=== PATIENT | female | born 1950 | race Caucasian/White ===

== ENCOUNTER 2020-02-24 07:26 | Day surgery (SDC) | payer OTHER ==
--- NOTE | 2020-02-19 09:29 | RAD REPORT ---
EXAM DESCRIPTION: Zack Rushing (2 Views)02/19/2020 9:20 am CLINICAL HISTORY: Preop. Hypertension COMPARISON: 2012 FINDINGS: The lungs appear clear of acute infiltrate. The heart is normal size IMPRESSION: No acute abnormalities displayed
[2020-02-19 09:52] LABS: Basophils % 0.6 % (0-1.3); Lymphocytes % 19.3 % (15.3-44.8); MPV 9.8 fL (7.6-11.3); RBC Red Blood Cell Count 3.85 M/uL (3.86-4.86)
[2020-02-19 10:12] LABS: Potassium 4.8 mmol/L (3.5-5.1)
[2020-02-24] MEDS ORDERED: Ringers Lactate 1,000 ML IV ONE (07:59)
[2020-02-24] MEDS ORDERED: CEFAZOLIN/SWI 1gm 1 GM/10 ML SYR ONE (07:59)
--- OUTSIDE RECORDS SUMMARY | 2020-02-24 08:05 | XMS REPORT | Continuity of Care Document ---
:1950 Author Organization [facility] Information [place] Care Team Providers Name Role Phone [facility] Information [place] Unavailable Un available Problems Problem Status Onset Classification Date Comments Sourc e Date Reported MOBID OBESITY Active 013 [facility] PREOP CARDIOVSCLR EXAM Active Diagnosis 11/05/2012 [facility] Morbid obesity Active Diagnosis 11/05/2012 [facility] Hypothyroidism Active Problem 11/05/2012 [facility] Hypertension Active Diagnosis 11/05/2012 [facility] Hyperlipidemia Active Diagnosis 11/05/2012 [facility] Acid reflux Active Problem 11/01/2012 [facility] Anal carcinoma Active Problem 11/01/2012 [facility] Chemotherapy Resolved Problem 11/01/2012 [facility] Diabetes mellitus Active Problem 11/01/2012 [facility] Hypercholesterolemia Active Problem 11/01/2012 [facility] Hypertension Active Problem 11/01/2012 [facility] Hypothyroidism Active Problem 11/01/2012 [facility] Liver carcinoma Resolved Problem 11/01/2012 [facility] Morbid obesity Active Problem 11/01/2012 [facility] Radiation Resolved Problem 11/01/2012 [facility] Sleep apnea Active Problem 11/01/2012 [facility] MORBID OBESITY Active [facility] Medications Medication Details Route Status Patient Ordering Order Source Instructions Provider Date Lortab 500 15 ml, PO, Q4H, PO [facility] Buck 10/30[facility] mg-7.5 mg/15 PRN, 300 mL, 2012 [facility] mL oral for pain, [facility] elixir Substitution Allowed, Maintenance, ELIX Lovenox 40 40 mg, SUB-Q, SUB-Q Active Buck 10/30[facility] mg/0.4 mL Q12H, 20 syr, 2012 [facility] subcutaneous Substitution [facility] solution Allowed, SOLN Metoprolol 50 mg, 1 tab, PO Active Buck 10/30/ Tartrate 50 PO, BID, 60 2012 [facility] mg oral tab, [facility] tablet Substitution Allowed Lasix 40 mg, 4 mL, IV No Buck 10/30[facility] Route: IV, Drug Longer 2012 [facility] form: INJ, [facility] ONCE, Start date: 10/30/12 10:32:00, Stop date: 10/30/12 10:32:00 Sodium 500 mL, Rate: IV No Buck 10/29/ MH Chloride 0.9% bolus x1, Longer 2012 [facility] IV 500 mL Route: IV, [facility] Dosing Weight 173.182 kg, Total Volume: 500, Start date: 10/29/12 12:49:00, Duration: 1 doses or times, Stop date: 10/29/12 14:48:00 Lopressor 5 mg, 5 mL, IV No Bukc 10/29/ MH Route: IV, Drug Longer 2012 [facility] form: INJ, Q6H, [facility] Start date: 10/29/12 12:49:00, Duration: 30 day, Stop date: 11/28/12 12:00:00 Sodium IV, 1000 ml/hr, IV No Buck 10/29/ MH Chloride 0.9% ONCE, [facility]: [facility] 7:42:00, 1,000 ml Sodium IV, 1000 ml/hr, IV No Buck 10/29/ MH Chloride 0.9% ONCE, Start Longer 2012 [facility] IV date: 10/29/12 [facility] 7:09:00, 1,000 ml Sodium IV, 1000 ml/hr, IV No Buck 10/28/ MH Chloride 0.9% ONCE, Start Longer 2012 [facility] IV date: 10/28/12 [facility] 13:30:00, 1,000 ml Lovenox 40 mg, 0.4 mL, SUB-Q No Buck 10/28/ Route: SUB-Q, Longer 2012 [facility] Drug form: INJ, [facility] [id number], Start date: 10/28/12 12:00:00, Duration: 30 day, Stop date: 11/27/12 0:00:00 acetaminophen 15 mL, Route: PO No Buck 10/28/ MH -hydrocodone PO, Drug Form: Longer 2012 [facility] SOLN, Q4H, PRN [facility] Pain, Start date: 10/28/12 11:14:00, Duration: 30 day, Stop date: 11/27/12 11:13:00 Tylenol 650 mg, 20.3 PO No Buck 10/28/ MH mL, Route: PO, Longer 2012 [facility] Drug form: LIQ, [facility] Q4H, PRN Pain Score 1-3, Start date: 10/28/12 11:14:00, Duration: 30 day, Stop date: 11/27/12 11:13:00 Lactated IV, 1000 ml/hr, IV No Primomo 10/28/ Ringers ONCE, Start Longer 2012 [facility] Injection IV date: 10/28/12 [facility] 7:09:00, 1,000 ml heparin 5,000 unit, 1 SUB-Q No Buck 10/28/ mL, Route: Longer 2012 [facility] SUB-Q, Drug [facility] form: INJ, ONCE, Start date: 10/28/12 0:00:00, Stop date: 10/28/12 0:00:00 ketorolac 30 30 mg, 1 mL, IV No Buck 10/28/ mg/mL Route: IV, Drug Longer 2012 [facility] injectable form: INJ, Q6H, [facility] solution Start date: 10/27/12 19:00:00, Duration: 4 day, Stop date: 10/31/12 13:00:00 Vasotec 1.25 mg, 1 mL, IVP No Buck 10/27/ Route: IVP, Longer 2012 [facility] Drug form: INJ, [facility] Q6H, PRN Hypertension, Start date: 10/27/12 14:24:00, Duration: 30 day, Stop date: 11/26/12 14:23:00 Phenergan 25 mg, 1 mL, IM No Buck 10/27/ Route: IM, Drug Longer 2012 [facility] form: INJ, Q4H, [facility] PRN Nausea, Start date: 10/27/12 14:24:00, Duration: 30 day, Stop date: 11/26/12 14:23:00 Lactated 1,000 mL, Rate: IV No Buck 10/27/ Ringers 80 ml/hr, Longer 2012 [facility] Injection IV Infuse over: [facility] 1,000 mL 12.5 hr, Route: IV, Dosing Weight 173.182 kg, Total Volume: 1,000, Start date: 10/27/12 14:23:00, Stop date: 11/26/12 14:22:00 insulin 5 unit, 0.05 SUB-Q No Buck 10/27/ regular 100 mL, Route: Longer 2012 [facility] units/mL SUB-Q, Drug Active [facility] human form: SOLN, recombinant Q6H, PRN Blood Glucose Results, Start date: 10/27/12 14:20:00, Duration: 30 day, Stop date: 11/26/12 14:19:00 Dextrose 50% 25 mL, Route: IVP No Buck 10/27/ MH in Water IV IVP, Start Longer 2012 [facility] date: 10/27/12 [facility] 14:20:00, Duration: 30 day, Stop date: 11/26/12 14:19:00, PRN Blood Glucose Results Dextrose 50% 50 mL, Route: IVP No Buck 10/27/ MH in Water IV IVP, Start Longer 2012 [facility] date: 10/27/12 [facility] 14:19:00, Duration: 30 day, Stop date: 11/26/12 14:18:00, PRN Blood Glucose Results Zofran 4 mg, 2 mL, IVP No Buck 10/27/ Route: IVP, [facility] 2012 [facility] Drug form: INJ, [place] Q8H, PRN Nausea & Vomiting, Start date: 10/27/12 12:36:00, Duration: 30 day, Stop date: 11/26/12 12:35:00 Benadryl 25 mg, 0.5 mL, IVP No Buck Route: IVP, 2012 [facility] Drug form: INJ, [place] Q6H, PRN Itching, Start date: 10/27/12 12:36:00, Duration: 30 day, Stop date: 11/26/12 12:35:00 naloxone 0.2 mg, 0.5 mL, IVP No Buck Route: IVP, Longer 2012 [facility] Drug form: INJ, [place] Q5Min, PRN Narcotic Reversal, Start date: 10/27/12 12:36:00, Duration: 30 day, Stop date: 11/26/12 12:35:00 morphine IV, Start date: IV No Buck Sulfate 30 mg 10/27/12 [facility] 2012 [facility] 12:35:00, Active [facility] Duration: 30, 30 ml, 173.182 ondansetron 4 mg, 2 mL, IVP No Antonio Route: IVP, 2012 [facility] Drug form: INJ, [place] ONCE, Dosing Weight 173.182, kg, PRN Nausea & Vomiting, Start date: 10/27/12 10:28:00 flumazenil 0.2 mg, 2 mL, IVP No [facility] Route: IVP, 2012 [facility] Drug form: INJ, [place] PRN, Dosing Weight 173.182, kg, PRN Benzodiazepine Reversal, Initial dose, Start date: 10/27/12 10:28:00, Duration: 30 day, Stop date: 11/26/12 10:27:00 naloxone 0.04 mg, 0.1 IVP No [facility] mL, Route: IVP, 2012 [facility] Drug form: INJ, [place] Q2MIN, Dosing Weight 173.182, kg, PRN Narcotic Reversal, Start date: 10/27/12 10:28:00, Duration: 8 doses or times, Stop date: Limited # of times morphine 2 mg, 0.2 mL, IVP No [facility] Sulfate Route: IVP, 2012 [facility] Drug form: INJ, [place] Q5Min, Dosing Weight 173.182, kg, PRN Pain Score 4-6, Start date: 10/27/12 10:28:00, Duration: 5 doses or times, Stop date: Limited # of times meperidine 12.5 mg, 0.25 IVP No [facility] mL, Route: IVP, Longer 2012 [facility] Drug form: INJ, [place] Q30Min, Dosing Weight 173.182, kg, PRN Other -See Comment, For shivering, Start date: 10/27/12 10:28:00, Duration: 2 doses or times, Stop date: Limited # of times Lactated 1,000 mL, Rate: IV No [facility] Ringers 25 ml/hr, Longer 2012 [facility] Injection IV Infuse over: 40 Active [facility] y 1,000 mL hr, Route: IV, Dosing Weight 173.182 kg, Total Volume: 1,000, Start date: 10/27/12 7:11:00, Duration: 30 day, Stop date: 11/26/12 7:10:00 Invanz + 1 gm, Route: IVPB No Buck Sodium IVPB, ONCALL, Longer 2012 [facility] Chloride 0.9% Start date: [facility] IV 100 mL 10/26/12 11:00:00, Duration: 1 doses or times Amaryl 4 mg 4 mg, 1 tab, PO No oral tablet PO, Daily, 30 Longer 2012 [facility] tab, [facility] Substitution Allowed, TAB Zocor 20 mg 20 mg, 1 tab, PO No oral tablet PO, Daily, 30 Longer 2012 [facility] tab, [facility] Substitution Allowed, Maintenance Synthroid 75 75 microgram, 1 PO No mcg (0.075 tab, PO, Daily, Longer 2012 [facility] mg) oral 30 tab, [facility] tablet Substitution Allowed, TAB folic acid Substitution Active Allowed 2012 [facility] Toprol-XL 100 100 mg, 1 tab, PO No mg oral PO, Daily, 30 Longer 2012 [facility] tablet, tab, [facility] extended Substitution release Allowed, ERTAB Benicar 40 mg 40 mg, 1 tab, PO No oral tablet PO, Daily, 30 Long[facility], [facility] Substitution Allowed, TAB Nasonex 2 spray(s) intranasally Active 50 mcg/inh [place] Comp intranasally Heart once a day Care Benicar 1 tab(s) orally Active 40 mg orally [place] Comp once a day [facility] Synthroid 1 tab(s) orally Active 75 mcg (0.075 [place] Comp mg) orally [facility] Toprol XL 1 tab(s) orally Active 100 mg orally [place] Comp once a day Heart Care Zocor 1 tab(s) orally Active 20 mg orally [place] Comp once a day Heart (at bedtime) Care folic acid 1 tab(s) orally Active 1 mg orally [place] Comp once a day [facility] Care Amaryl 1 tab(s) orally Active 4 mg orally [place] Comp once a day Heart Care Allergies, Adverse Reactions, Alerts Substance Category Reaction Severity Reaction Status Date Comments S ource type Reported NKFA drug Allergy Active allergy [facility] Immunizations No Data Provided for This Section Results Order Name Results Value Reference Date Interpretation Comments Janeen rce Range BEDSIDE Gluc POC 138 70 - 99 10/30 HI <sup>1</sup>I GLUCOSE Lif /2012 nterpretive [facility] TESTING Data: [facility] Upper Reportable Limit: 200 mg/dL. CHEMISTRY AGAP 14.4 10.0 - 10/30 Normal MH 20. [facility] CHEMISTRY eGFR 32 10/30 NA <sup>4</sup>R [facility] Comment: The [facility] eGFR is calculated using the CKD-EPI formula. In most young, healthy individuals the eGFR will be >90 mL/min/1.73m2 . The eGFR declines with age. An eGFR of 60-89 may be normal in some populations, particularly the elderly, for whom the CKD-EPI formula has not been extensively validated. Use of the eGFR is not recommended in the following populations:& lt;br/>
I ndividuals with unstable creatinine concentration s, including patients and those with serious co-morbid conditions.<b r/>
Patie nts with extremes in muscle mass or diet.

The data above are obtained from the National Kidney Disease Education Program (NKDEP) which additionally recommends that when the eGFR is used in patients with extremes of body mass index for purposes of drug dosing, the eGFR should be multiplied by the estimated BMI. CHEMISTRY Chloride Lvl 107 95 - 109 10/30 Normal [facility] CHEMISTRY CO2 24 24 - 32 10/30 Normal [facility] CHEMISTRY Calcium Lvl 8.4 8.5 - 10.5 10/30 LOW [facility] CHEMISTRY BUN 36 7 - 22 10/30 HI [facility] CHEMISTRY Glucose Lvl 110 70 - 99 10/30 HI <sup>7</sup>I nterpretive [facility] Data: [facility] reference range values reflect the clinical guidelines
of the [employer]. CHEMISTRY Sodium Lvl 141 135 - 145 10/30 Normal [facility] CHEMISTRY Creatinine 1.7 0.5 - 1.4 10/30 HI [facility] CHEMISTRY Potassium 4.4 3.5 - 5.1 10/30 Normal [facility] HEMATOLOGY RDW 15.1 11.5 - 10/30 HI MH 14.5 [facility] HEMATOLOGY MCH 31.4 27.0 - 10/30 HI MH 31. [facility] HEMATOLOGY Platelet 134 133 - 450 10/30 Normal /2012 [facility] HEMATOLOGY MCHC 34.0 32.0 - 10/30 Normal MH 36.0 [facility] HEMATOLOGY MCV 92.4 81.0 - 10/30 Normal MH 99.0 /2012 [facility] HEMATOLOGY Hct 32.1 36.0 - 10/30 LOW MH 48.0 /2012 [facility] HEMATOLOGY MPV 11.1 7.4 - 10.4 10/30 HI MH /2012 [facility] HEMATOLOGY Hgb 10.9 12.0 - 10/30 LOW MH 16.0 /2012 [facility] HEMATOLOGY WBC 10.9 3.7 - 10.4 10/30 HI /2012 [facility] HEMATOLOGY RBC 3.47 4.20 - 10/30 LOW MH 5.40 /2012 [facility] HEMATOLOGY Neut Vac Slight None Seen 10/30 ABN *ABN* /2012 [facility] (10/30/2012 11:09:00) Ci HEMATOLOGY Monocytes # 0.6 0.0 - 0.8 10/30 Normal MH /2012 [facility] HEMATOLOGY Large Plt Slight None Seen 10/30 ABN *ABN* /2012 [facility] (10/30/2012 11:09:00) Ci HEMATOLOGY Basophils # 0.0 0.0 - 0.2 10/30 Normal /2012 [facility] HEMATOLOGY Eosinophils 0.1 0.0 - 0.5 10/30 Normal MH # /2012 [facility] HEMATOLOGY Lymphocytes 0.4 1.0 - 5.5 10/30 LOW MH # /2012 [facility] HEMATOLOGY Segs-Bands # 9.8 1.5 - 8.1 10/30 HI MH /2012 [facility] HEMATOLOGY Basophils 0.1 0.0 - 1.0 10/30 Normal MH /2012 [facility] HEMATOLOGY Monocytes 5.2 2.0 - 12.0 10/30 Normal /2012 [facility] HEMATOLOGY RBC Morph Normal 10/30 Normal (10/30/2012 11:09:00) /2012 [facility] HEMATOLOGY Segs 90.1 45.0 - 10/30 HI MH 75.0 [facility] HEMATOLOGY Lymphocytes 3.7 20.0 - 10/30 LOW MH 40.0 [facility] HEMATOLOGY Eosinophils 0.9 0.0 - 4.0 10/30 Normal MH /2012 [facility] BEDSIDE Gluc POC 108 70 - 99 10/30 HI <sup>2</sup>I GLUCOSE Lifscn /2012 nterpretive [facility] TESTING Data: [facility] Upper Reportable Limit: 200 mg/dL. CHEMISTRY Phosphorus 3.1 2.5 - 4.5 10/30 Normal /2012 [facility] CHEMISTRY Magnesium 1.1 1.8 - 2.4 10/30 LOW MH [facility] CHEMISTRY A/G Ratio 0.9 0.7 - 1.6 10/30 Normal [facility] CHEMISTRY Globulin 3.2 2.0 - 4.0 10/30 Normal [facility] CHEMISTRY Alk Phos 69 39 - 136 10/30 Normal [facility] CHEMISTRY ALT 26 0 - 65 10/30 Normal [facility] CHEMISTRY AST 16 0 - 37 10/30 Normal [facility] CHEMISTRY Bili Total 0.3 0.2 - 1.3 10/30 Normal [facility] CHEMISTRY eGFR 30 10/30 NA <sup>5</sup>R [facility] Comment: The [facility] eGFR is calculated using the CKD-EPI formula. In most young, healthy individuals the eGFR will be >90 mL/min/1.73m2 . The eGFR declines with age. An eGFR of 60-89 may be normal in some populations, particularly the elderly, for whom the CKD-EPI formula has not been extensively validated. Use of the eGFR is not recommended in the following populations:& lt;br/>
I ndividuals with unstable creatinine concentration s, including patients and those with serious co-morbid conditions.<b r/>
Patie nts with extremes in muscle mass or diet.

The data above are obtained from the National Kidney Disease Education Program (NKDEP) which additionally recommends that when the eGFR is used in patients with extremes of body mass index for purposes of drug dosing, the eGFR should be multiplied by the estimated BMI. CHEMISTRY Glucose Lvl 116 70 - 99 10/30 HI <sup>8</sup>I nterpretive [facility] Data: [facility] reference range values reflect the clinical guidelines
of the [employer]. CHEMISTRY BUN 36 7 - 22 10/30 HI [facility] CHEMISTRY Potassium 4.0 3.5 - 5.1 10/30 Normal [facility] CHEMISTRY Chloride Lvl 108 95 - 109 10/30 Normal [facility] CHEMISTRY Creatinine 1.8 0.5 - 1.4 10/30 HI MH [facility] CHEMISTRY Sodium Lvl 140 135 - 145 10/30 Normal [facility] CHEMISTRY CO2 24 24 - 32 10/30 Normal MH /2012 [facility] CHEMISTRY Albumin Lvl 2.8 3.5 - 5.0 10/30 LOW MH /2012 [facility] CHEMISTRY Calcium Lvl 8.1 8.5 - 10.5 10/30 LOW MH /2012 [facility] CHEMISTRY B/C Ratio 20 6 - 25 10/30 Normal /2012 [facility] CHEMISTRY Total 6.0 6.4 - 8.4 10/30 LOW MH Protein /2012 [facility] CHEMISTRY AGAP 12.0 10.0 - 10/30 Normal MH 20.0 /2012 [facility] HEMATOLOGY MCHC 32.8 32.0 - 10/30 Normal MH 36.0 /2012 [facility] HEMATOLOGY Hct 30.8 36.0 - 10/30 LOW MH 48.0 /2012 [facility] HEMATOLOGY RDW 15.4 11.5 - 10/30 HI MH 14.5 [facility] HEMATOLOGY MCH 29.9 27.0 - 10/30 Normal MH 31.0 [facility] HEMATOLOGY MCV 91.3 81.0 - 10/30 Normal MH 99.0 [facility] HEMATOLOGY Platelet 128 133 - 450 10/30 LOW <sup>14</sup> Result [facility] Comment: City reviewed, spoke to cuong joan 10/30/2012 00:56 gr HEMATOLOGY MPV 11.5 7.4 - 10.4 10/30 HI MH /2012 [facility] HEMATOLOGY RBC 3.37 4.20 - 10/30 LOW MH 5.40 /2012 [facility] HEMATOLOGY WBC 10.0 3.7 - 10.4 10/30 Normal /2012 [facility] HEMATOLOGY Hgb 10.1 12.0 - 10/30 LOW MH 16.0 [facility] HEMATOLOGY Elliptocyte Slight None Seen 10/30 ABN MH *ABN* /2012 [facility] (10/29/2012 23:55:00) Ci ty HEMATOLOGY Large Plt Slight None Seen 10/30 ABN MH *ABN* /2012 [facility] (10/29/2012 23:55:00) Ci ty HEMATOLOGY Tear Cell Slight None Seen 10/30 ABN *ABN* /2012 [facility] (10/29/2012 23:55:00) Ci ty HEMATOLOGY Monocytes 1.0 2.0 - 12.0 10/30 LOW [facility] HEMATOLOGY Eosinophils 1.0 0.0 - 4.0 10/30 Normal MH /2012 [facility] HEMATOLOGY Atypical 0.0 <=0.0 10/30 Normal MH Lymphs /2012 [facility] HEMATOLOGY Lymphocytes 3.0 20.0 - 10/30 LOW MH 40.0 /2012 [facility] HEMATOLOGY Bands 13.0 0.0 - 11.0 10/30 HI MH /2012 [facility] HEMATOLOGY Lymphocytes 0.3 1.0 - 5.5 10/30 LOW MH # /2012 [facility] HEMATOLOGY Monocytes # 0.1 0.0 - 0.8 10/30 Normal MH /2012 [facility] HEMATOLOGY Eosinophils 0.1 0.0 - 0.5 10/30 Normal MH # /2012 [facility] HEMATOLOGY Segs-Bands # 9.5 1.5 - 8.1 10/30 HI MH /2012 [facility] HEMATOLOGY Segs 82.0 45.0 - 10/30 HI MH 75.0 /2012 [facility] BEDSIDE Gluc POC 130 70 - 99 10/30 HI <sup>3</sup>I GLUCOSE Lifscn /2012 nterpretive [facility] TESTING Data: [facility] Upper Reportable Limit: 200 mg/dL. CHEMISTRY eGFR 34 10/29 NA <sup>6</sup>R [facility] Comment: The [facility] eGFR is calculated using the CKD-EPI formula. In most young, healthy individuals the eGFR will be >90 mL/min/1.73m2 . The eGFR declines with age. An eGFR of 60-89 may be normal in some populations, particularly the elderly, for whom the CKD-EPI formula has not been extensively validated. Use of the eGFR is not recommended in the following populations:& lt;br/>
I ndividuals with unstable creatinine concentration s, including patients and those with serious co-morbid conditions.<b r/>
Patie nts with extremes in muscle mass or diet.

The data above are obtained from the National Kidney Disease Education Program (NKDEP) which additionally recommends that when the eGFR is used in patients with extremes of body mass index for purposes of drug dosing, the eGFR should be multiplied by the estimated BMI. CHEMISTRY Creatinine 1.6 0.5 - 1.4 10/29 HI MH Lvl [facility] HEMATOLOGY PTT 21.5 22.9 - 10/29 LOW <sup>17</sup> MH 35.8 /2013 Interpretive [facility] Data: Heparin [facility] Therapeutic Range: 57 - 92 Seconds HEMATOLOGY Platelet 40 133 - 450 10/29 LOW <sup>15</sup> Result [facility] Comment: Barby Selena acevedo agreed to verify. 10/29/2012 18:47 CHEMISTRY U Creatinine 474.5 10/29 NA <sup>12</sup> Interpretive [facility] Data: No [facility] established reference ranges. CHEMISTRY U Sodium 11 10/29 NA <sup>13</sup> Interpretive [facility] Data: No [facility] established reference ranges. CHEMISTRY Total 6.0 6.4 - 8.4 10/29 LOW MH Protein [facility] CHEMISTRY Globulin 2.8 2.0 - 4.0 10/29 Normal [facility] CHEMISTRY A/G Ratio 1.1 0.7 - 1.6 10/29 Normal [facility] CHEMISTRY AST 24 0 - 37 10/29 Normal [facility] CHEMISTRY ALT 33 0 - 65 10/29 Normal [facility] CHEMISTRY Bili Total 0.7 0.2 - 1.3 10/29 Normal [facility] CHEMISTRY Alk Phos 76 39 - 136 10/29 Normal [facility] CHEMISTRY Albumin Lvl 3.2 3.5 - 5.0 10/29 LOW [facility] CHEMISTRY CO2 25 24 - 32 10/29 Normal [facility] CHEMISTRY Sodium Lvl 141 135 - 145 10/29 Normal [facility] CHEMISTRY Potassium 4.5 3.5 - 5.1 10/29 Normal MH Lvl [facility] CHEMISTRY Chloride Lvl 105 95 - 109 10/29 Normal [facility] CHEMISTRY Calcium Lvl 8.5 8.5 - 10.5 10/29 Normal [facility] CHEMISTRY Glucose Lvl 107 70 - 99 10/29 HI <sup>9</sup>I nterpretive [facility] Data: [facility] reference range values reflect the clinical guidelines
of the [employer]. CHEMISTRY BUN 31 7 - 22 10/29 HI [facility] CHEMISTRY B/C Ratio 17 6 - 25 10/29 Normal [facility] CHEMISTRY AGAP 15.5 10.0 - 10/29 Normal MH 20.0 [facility] HEMATOLOGY Large Plt Slight None Seen 10/29 ABN MH *ABN* /2012 [facility] (10/29/2012 05:57:00) Ci ty HEMATOLOGY Basophils # 0.0 0.0 - 0.2 10/29 Normal MH /2012 [facility] HEMATOLOGY RBC Morph Normal 10/29 Normal MH (10/29/2012 05:57:00) /2012 [facility] HEMATOLOGY Eosinophils 0.1 0.0 - 4.0 10/29 Normal MH /2012 [facility] HEMATOLOGY Basophils 0.2 0.0 - 1.0 10/29 Normal MH /2012 [facility] HEMATOLOGY Segs 93.2 45.0 - 10/29 HI MH 75.0 /2012 [facility] HEMATOLOGY Lymphocytes 3.2 20.0 - 10/29 LOW MH 40.0 /2012 [facility] HEMATOLOGY Monocytes 3.3 2.0 - 12.0 10/29 Normal MH /2012 [facility] HEMATOLOGY Eosinophils 0.0 0.0 - 0.5 10/29 Normal MH # /2012 [facility] [facility] HEMATOLOGY Segs-Bands # 11.6 1.5 - 8.1 10/29 HI MH /2012 [facility] HEMATOLOGY Lymphocytes 0.4 1.0 - 5.5 10/29 LOW MH # /2012 [facility] HEMATOLOGY Monocytes # 0.4 0.0 - 0.8 10/29 Normal MH /2012 [facility] HEMATOLOGY WBC 12.4 3.7 - 10.4 10/29 HI MH /2012 [facility] HEMATOLOGY MCV 91.9 81.0 - 10/29 Normal MH 99.0 /2012 [facility] HEMATOLOGY Hct 33.8 36.0 - 10/29 LOW MH 48.0 /2012 [facility] HEMATOLOGY MCH 31.1 27.0 - 10/29 HI MH 31.0 /2012 [facility] HEMATOLOGY Hgb 11.5 12.0 - 10/29 LOW MH 16.0 [facility] HEMATOLOGY RBC 3.68 4.20 - 10/29 LOW MH 5.40 /2012 [facility] HEMATOLOGY MPV 11.3 7.4 - 10.4 10/29 HI MH /2012 [facility] HEMATOLOGY MCHC 33.9 32.0 - 10/29 Normal MH 36.0 [facility] HEMATOLOGY RDW 14.9 11.5 - 10/29 HI MH 14.5 [facility] BEDSIDE Comment1 Notify 10/28 NA GLUCOSE RN/MD /2012 [facility] BEDSIDE Comment1 Notify 10/28 NA GLUCOSE RN/ /2012 [facility] CHEMISTRY B/C Ratio 17 6 - 25 10/28 Normal [facility] CHEMISTRY Globulin 3.2 2.0 - 4.0 10/28 Normal MH [facility] CHEMISTRY A/G Ratio 0.9 0.7 - 1.6 10/28 Normal MH [facility] CHEMISTRY Albumin Lvl 2.9 3.5 - 5.0 10/28 LOW MH [facility] CHEMISTRY Total 6.1 6.4 - 8.4 10/28 LOW MH Protein [facility] CHEMISTRY AST 27 0 - 37 10/28 Normal [facility] CHEMISTRY Bili Total 0.6 0.2 - 1.3 10/28 Normal [facility] CHEMISTRY Alk Phos 72 39 - 136 10/28 Normal [facility] CHEMISTRY ALT 38 0 - 65 10/28 Normal [facility] HEMATOLOGY Plt Morph Normal 10/28 Normal (10/28/2012 04:04:00) [facility] HEMATOLOGY RBC Morph Normal 10/28 Normal (10/28/2012 04:04:00) [facility] HEMATOLOGY Basophils 0.0 0.0 - 1.0 10/28 Normal [facility] HEMATOLOGY Basophils # 0.0 0.0 - 0.2 10/28 Normal [facility] BEDSIDE Comment1 Notify 10/27 NA GLUCOSE RN/MD /2012 [facility] BLOOD BANK AB Scrn Negative 10/27 Normal RESULTS (Tube) (10/27/2012 07:30:00) [facility] BLOOD BANK ABO/Rh A POS 10/27 Unknown RESULTS /2012 [facility] CHEMISTRY Vitamin B1 132 78 - 185 10/13 NA <sup>10</sup> Result [facility] Comment: [place] Performed at:
[facility]<br/ >[address] [place] [address]
koffi Sandip [facility] [address] Mel Hines MD, PhD CHEMISTRY Vitamin D, 11 30 - 100 10/13 ABN <sup>11</sup> 25-OH, Total *ABN* /2012 Interpretive Peri greene (10/13/2012 11:55:00) Data: Ci ty Reference range is based on recommendatio ns in the Endocrine<br/ >Society Clinical Practice Guideline (J Clin Endocrinol Metab
201 1;96:[id number] 0) HEMATOLOGY INR 0.99 0.85 - 10/13 Normal <sup>16</sup> MH 1.17 Interpretive [facility] Data: [facility] RECOMMENDED RANGES FOR PROTIME INR:
2.0-3.0 for most medical and surgical thromboemboli c states.
2.5-3.5 for artificial heart valves and recurrent embolism.<br/ >
INR SHOULD BE USED ONLY FOR PATIENTS ON STABLE ANTICOAGULANT THERAPY. HEMATOLOGY PTT 38.9 22.9 - 10/13 HI <sup>18</sup> MH 35.8 /2012 Interpretive [facility] Data: [facility] Therapeutic Range: 57 - 92 Seconds HEMATOLOGY PT 13.3 12.0 - 10/13 Normal MH 14.7 /2012 [facility] URINALYSIS UA 0.1 - 1.0 10/13 [facility] Urobilinogen /2012 [facility] URINALYSIS UA Mucus Few /LPF None Seen 10/13 [facility] *NA* /2012 [facility] (10/13/2012 11:41:00) Ci ty URINALYSIS Micro? [facility] 10[facility] (10/13/2012 11:41:00) Ci ty URINALYSIS UA Bacteria Occasional /HPF None Seen 10/13 [facility] *NA* /2012 [facility] (10/13/2012 11:41:00) Ci ty URINALYSIS UA WBC 1 0 - 5 10/13 Normal [facility] URINALYSIS UA Nitrite Negative Negative 10/13 Normal (10/13/2012 11:41:00) [facility] URINALYSIS UA Leuk Est Negative Negative 10/13 Normal (10/13/2012 11:41:00) [facility] URINALYSIS UA Sq Epi Few /LPF Few 10/13 [facility] *NA* /2012 [facility] (10/13/2012 11:41:00) Ci ty URINALYSIS UA Blood Negative Negative 10/13 Normal (10/13/2012 11:41:00) [facility] URINALYSIS UA Glucose Negative mg/dL Negative 10/13 [facility] *NA* [facility] (10/13/2012 11:41:00) Ci ty URINALYSIS UA Ketones Negative mg/dL Negative 10/13 [facility] *NA* [facility] (10/13/2012 11:41:00) Ci ty URINALYSIS UA Bili Negative Negative 10/13 [facility] *NA* [facility] (10/13/2012 11:41:00) Ci ty URINALYSIS UA Protein 30 mg/dL Negative 10/13 ABN *ABN* /2012 [facility] (10/13/2012 11:41:00) Ci ty URINALYSIS UA pH 5.5 5.0 - 8.0 10/13 Normal [facility] URINALYSIS UA Turbidity Clear Clear 10/13 Normal (10/13/2012 11:41:00) /2012 [facility] URINALYSIS UA Spec Grav 1.016 <=1.030 10/13 Normal [facility] URINALYSIS UA Color Yellow Yellow 10/13 NA *NA* /2012 [facility] (10/13/2012 11:41:00) Ci ty Pathology Reports No Data Provided for This Section Diagnostic Reports Report Value Date Source Stomach UGI (water OMNIPAQUE UPPER GI SERIES 10/28/2012 10/29/19 13 [facility] soluble contrast) The fluoroscopy time is 0.5 minute. Small volume of Omnipaque gi julia orally passed easily from the distal esophagus into the proximal small bowel via the gastrojejunostomy. No contrast extravasation or obstruction is seen. Chest 2 views EXAMINATION: Chest x-ray 2 views 10/13/2012 [facility] COMPARISON: NONE AVAILABLE COMMENTS: The heart and pulmonary vasc ulature are within normal limits. No focal consolidation or significant pleural fluid collection is appreciated. No suspicious osseous pathology. IMPRESSION: NO ACUTE CARDIOPULMONARY ABNORMALITY. Consultation Notes No Data Provided for This Section Discharge Summaries No Data Provided for This Section History and Physicals No Data Provided for This Section Vital Signs Vital Sign Value Date Comments Source Heart Rate 108 10/30/2012 [facility] [place] Diastolic (mm Hg) 74 10/30/2012 [facility] Respitory Rate 16 10/30/2012 [facility] Systolic (mm Hg) 139 10/30/2012 [facility] Temperature Oral (F) 98.0 F 10/30/2012 [facility] Diastolic (mm Hg) 48 10/30/2012 [facility] Systolic (mm Hg) 110 10/30/2012 [facility] Respitory Rate 16 10/30/2012 [facility] Heart Rate 102 10/30/2012 [facility] [place] Temperature Oral (F) 98.6 F 10/30/2012 [facility] Systolic (mm Hg) 113 10/30/2012 [facility] Diastolic (mm Hg) 72 [facility] Heart Rate 106 10/30/2012 [facility] [place] Respitory Rate 16 10/30/2012 [facility] Barbie ity Temperature Oral (F) 98.1 F 10/30/2012 Tanner callaway [facility] Height 154.94 cm 10/13/2012 [facility] [place] Weight 173.182 10/13/2012 [facility] Cit y Diastolic (mm Hg) 98 09/01/2012 [facility] Systolic (mm Hg) 160 09/01/2012 [facility] Weight 374.2 09/01/2012 [facility] Height 63 09/01/2012 [facility] Encounters Location Location Encounter Encounter Reason Attending ADM DC Stat us Source Details Type Number For Provider Date Date Visit Comprehensi Unknown [id number] 09/01 09/01 [facility] [id number] /[facility] [id number] [facility] Inpatient [id number] [facility] 10/27 10/30 Dis [facility] /2012 ed [facility] Procedures Procedure Code Date Perfomer Comments Source Gastric bypass [id number] [facility] Bariatric operative [id number] [facility] Cholecystectomy [id number] [facility] Hysterectomy [id number] [facility] Liver reconstruction [id number] [id number] <sup>1</sup> Assessment and Plan No Data Provided for This Section Plan of Care No Data Provided for This Section Social History Social History Date Source Social History ElementQualifiersDate Reported 09/01/2012 [facility] Caffeine: yes. frequency: Patient drinks 1 cup of coffee per day September 01, 2012 Recreational drug use: no. September 01, 2012 Tobacco Use: . Smoking Status: former smoker Patient smokes 2 cigarettes per day before quitting in 1982September 01, 2012 Alcohol: socially. Pateint drinks 1 glass of wine per week September 01, 2012 Family History No Data Provided for This Section Advance Directives No Data Provided for This Section Functional Status No Data Provided for This Section
--- OUTSIDE RECORDS SUMMARY | 2020-02-24 08:07 | XMS REPORT | Continuity of Care Document ---
:1950 Author Organization [facility] t Address [address] [place] [address] Care Team Providers Name Role Phone Unavailable Unavailable Unavailable Problems Condition Condition Condition Status Onset Resolution Last Treating Co mments Source Name Details Category Date Date Treatment Clinician Date MOBID Diagnosis Active 2012-10-27 Mem oria OBESITY 5-16 13:28:00 l MOBID 00:00: [place] OBESITY 00 Active 09/18/2012 [facility][note 3] Chemothera Problem Resolve 2012-11-01 Memoria py d 20:14:36 l Main Chemothera py Resolved Problem 11/01/2012 [facility][note 3] Liver Problem Resolve 2012-11-01 Tanner isaias carcinoma d 20:14:36 l Liver Main carcinoma Resolved Problem 11/01/2012 [facility][note 3] Radiation Problem Resolve 2012-11-01 M emoria d 20:14:36 l Main Radiation Resolved Problem 11/01/2012 [facility][note 3] PREOP Diagnosis Active 2012-11-05 Mem oria CARDIOVSCL 04:11:47 l R EXAM PREOP [place] CARDIOVSCL R EXAM Active Diagnosis 11/05/2012 [facility] Morbid Diagnosis Active 2012-11-05 Mem oria obesity 04:11:47 l Morbid Main obesity Active Diagnosis 11/05/2012 [facility] Hypothyroi Problem Active 2012-11-05 M emoria dism 04:11:47 l (acquired) Phu n Hypothyroi dism (acquired) Active Problem 11/05/2012 [facility] Hypertensi Diagnosis Active 2012-11-05 Memoria on 04:11:47 l Main Hypertensi on Active Diagnosis 11/05/2012 [facility] Hyperlipid Diagnosis Active 2012-11-05 Memoria emia 04:11:47 l Main Hyperlipid emia Active Diagnosis 11/05/2012 [facility] Acid Problem Active 2012-11-01 Memor ia reflux 20:14:36 l Acid [place] reflux Active Problem 11/01/2012 [facility][note 3] 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 20:14:36 l Anal Main carcinoma Active Problem 11/01/2012 [facility][note 3] Diabetes Problem Active 2012-11-01 Mem oria mellitus 20:14:36 l Diabetes Phu n mellitus Active Problem 11/01/2012 [facility][note 3] Hyperchole Problem Active 2012-11-01 M emoria sterolemia 20:14:36 l Main Hyperchole sterolemia Active Problem 11/01/2012 [facility][note 3] Hypertensi Problem Active 2012-11-01 M emoria on 20:14:36 l Main Hypertensi on Active Problem 3 [facility][note 3] Hypothyroi Problem Active 2012-11-01 M emoria dism 20:14:36 l [place] Hypothyroi dism Active Problem 11/01/2012 [facility][note 3] Morbid Problem Active 2012-11-01 Memor ia obesity 20:14:36 l Morbid Main obesity Active Problem 11/01/2012 [facility][note 3] Sleep Problem Active 2012-11-01 Memor ia apnea 20:14:36 l Sleep [place] apnea Active Problem 11/01/2012 [facility][note 3] Allergies, Adverse Reactions, Alerts Allergy Allergy Status Severity Reaction(s) Onset Inactive Treating Comm ents Source Name Type Date Date Clinician NKFA NKFA Active Caio Quach Social History Social Habit Start Date Stop Date Quantity Comments Source Caffeine: 2012-09-01 00:00:00 2012-09-01 Memor ial [place] 00:00:00 Medications Ordered Filled Start Stop Current Ordering Indication Dosage Frequency Signature Comments Components Source Medication Medication Date Date Medication? Clinician (SIG) Name Name Nasonex Yes Salah El 2 spray(s) Memoria 11-05 Hafi l 04:11: Main 47 Benicar Yes Salah El 1 tab(s) Me moria 11-05 Hafi l 04:11: Main 47 Synthroid Yes Salah El 1 tab(s) Memoria 11-05 Hafi l 04:11: Main 47 Toprol XL Yes Salah El 1 tab(s) Memoria 11-05 Hafi l 04:11: Main 47 Zocor 2013-0 Yes Salah El 1 tab(s) Tanner isaias 7-03 Hafi l 04:11: Main 47 folic acid Yes Salah El 1 tab(s) Memoria 7-03 Hafi l 04:11: Main 47 Amaryl Yes Salah El 1 tab(s) Mem oria 7-03 Hafi l 04:11: Main 47 Lortab 500 Yes Garth P 15 ml, PO, Memoria mg-7.5 6-27 Buck Q4H, PRN, l mg/15 mL 19:41: 300 mL, Phu n oral elixir 44 for pain, Substituti on Allowed, Maintenanc e, ELIX Lovenox 40 Yes Garth P 40 mg, Me moria mg/0.4 mL 6- Buck SUB-Q, l subcutaneou 19:41: Q12H, 20 He rmann s solution 26 syr, Substituti on Allowed, SOLN Metoprolol Yes Garth P 50 mg, 1 Memoria Tartrate 50 6-27 Buck tab, PO, l mg oral 19:40: BID, 60 [place] tablet 33 tab, Substituti on Allowed Lasix No Garth P 40 mg, 4 Memor ia 6-27 Ubck mL, Route: l 15:32: IV, Drug [place] form: INJ, ONCE, Start date: 10/30/12 10:32:00, Stop date: 10/30/12 10:32:00 Sodium No Garth P 500 mL, Memor ia Chloride 6- Buck Rate: l 0.9% IV 500 17:49: bolus x1, H ermann mL 00 Route: IV, Dosing Weight 173.182 kg, Total Volume: 500, Start date: 10/29/12 12:49:00, Duration: 1 doses or times, Stop date: 10/29/12 14:48:00 Lopressor No Garth P 5 mg, 5 Me moria 6-26 Buck mL, Route: l 17:49: IV, Drug Main form: INJ, Q6H, Start date: 10/29/12 12:49:00, Duration: 30 day, Stop date: 11/28/12 12:00:00 Sodium 0 No Garth P IV, 1000 Tanner isaias Chloride 6-26 Buck ml/hr, l 0.9% IV 12:42: ONCE, Compton Start date: 10/29/12 7:42:00, 1,000 ml Sodium No Garth P IV, 1000 Tanner isaias Chloride 6-26 Buck ml/hr, l 0.9% IV 12:09: ONCE, Compton 00 Start date: 10/29/12 7:09:00, 1,000 ml Sodium No Garth P IV, 1000 Tanner isaias Chloride 6-25 Buck ml/hr, l 0.9% IV 18:30: ONCE, Main Start date: 10/28/12 13:30:00, 1,000 ml Lovenox No Garth P 40 mg, 0.4 M emoria 6-25 Buck mL, Route: l 17:00: SUB-Q, Drug form: INJ, doesU96B, Start date: 10/28/12 12:00:00, Duration: 30 day, Stop date: 11/27/12 0:00:00 acetaminoph No Garth P 15 mL, M emoria en-hydrocod 6-25 Buck Route: PO, l one 16:14: Drug Form: SOLN, Q4H, PRN Pain, Start date: 10/28/12 11:14:00, Duration: 30 day, Stop date: 11/27/12 11:13:00 Tylenol No Garth P 650 mg, Tanner isaias 6-25 Buck 20.3 mL, l 16:14: Route: PO, Drug form: LIQ, Q4H, PRN Pain Score 1-3, Start date: 10/28/12 11:14:00, Duration: 30 day, Stop date: 11/27/12 11:13:00 Lactated 2012- No Paul IV, 1000 Memor ia Ringers 6-25 Shant ml/hr, l Injection 12:09: Primomo ONCE, Herm puma IV Start date: 10/28/12 7:09:00, 1,000 ml heparin No Garth P 5,000 Memori a 6-25 Buck unit, 1 l 05:00: mL, Route: Main 00 SUB-Q, Drug form: INJ, ONCE, Start date: 10/28/12 0:00:00, Stop date: 10/28/12 0:00:00 ketorolac 2012-0 No Garth P 30 mg, 1 M emoria 30 mg/mL 6-25 Buck mL, Route: l injectable 00:00: IV, Drug Her michael solution 00 form: INJ, Q6H, Start date: 10/27/12 19:00:00, Duration: 4 day, Stop date: 10/31/12 13:00:00 Vasotec 2012-0 No Garth P 1.25 mg, 1 M emoria 6-24 Buck mL, Route: l 19:24: IVP, Drug [place] 00 form: INJ, Q6H, PRN Hypertensi on, Start date: 10/27/12 14:24:00, Duration: 30 day, Stop date: 11/26/12 14:23:00 Phenergan 2012-0 No Garth P 25 mg, 1 M emoria 6-24 Buck mL, Route: l 19:24: IM, Drug Main form: INJ, Q4H, PRN Nausea, Start date: 10/27/12 14:24:00, Duration: 30 day, Stop date: 11/26/12 14:23:00 Lactated 2012-0 No Garth P 1,000 mL, M emoria Ringers -24 Buck Rate: 80 l Injection 19:23: ml/hr, Phu n IV 1,000 mL 00 Infuse over: 12.5 hr, Route: IV, Dosing Weight 173.182 kg, Total Volume: 1,000, Start date: 10/27/12 14:23:00, Stop date: 11/26/12 14:22:00 insulin 2012-0 No Garth P 5 unit, Tanner isaias regular 100 - Buck 0.05 mL, l units/mL 19:20: Route: [place] human 00 SUB-Q, recombinant Drug form: SOLN, Q6H, PRN Blood Glucose Results, Start date: 10/27/12 14:20:00, Duration: 30 day, Stop date: 11/26/12 14:19:00 Dextrose 2012-0 No Garth P 25 mL, Tanner isaias 50% in 6-24 Buck Route: l Water IV 19:20: IVP, Start Her michael 00 date: 10/27/12 14:20:00, Duration: 30 day, Stop date: 11/26/12 14:19:00, PRN Blood Glucose Results Dextrose No Garth P 50 mL, Tanner isaias 50% in 6-24 Buck Route: l Water IV 19:19: IVP, Start Her michael 00 date: 10/27/12 14:19:00, Duration: 30 day, Stop date: 11/26/12 14:18:00, PRN Blood Glucose Results Zofran No Garth P 4 mg, 2 Memor ia 6-24 Buck mL, Route: l 17:36: IVP, Drug Main 00 form: INJ, Q8H, PRN Nausea & Vomiting, Start date: 10/27/12 12:36:00, Duration: 30 day, Stop date: 11/26/12 12:35:00 Benadryl No Garth P 25 mg, 0.5 Memoria 6-24 Buck mL, Route: l 17:36: IVP, Drug Main 00 form: INJ, Q6H, PRN Itching, Start date: 10/27/12 12:36:00, Duration: 30 day, Stop date: 11/26/12 12:35:00 naloxone No Garth P 0.2 mg, Mem oria 6-24 Buck 0.5 mL, l 17:36: Route: Main 00 IVP, Drug form: INJ, Q5Min, PRN Narcotic Reversal, Start date: 10/27/12 12:36:00, Duration: 30 day, Stop date: 11/26/12 12:35:00 morphine No Garth P IV, Start M emoria Sulfate 30 6-24 Buck date: l mg 17:35: 10/27/12 Main 00 12:35:00, Duration: 30, 30 ml, 173.182 ondansetron No Hosni Matilda 4 mg, 2 Memoria 6-24 Bassili mL, Route: l 15:28: IVP, Drug Main form: INJ, ONCE, Dosing Weight 173.182, kg, PRN Nausea & Vomiting, Start date: 10/27/12 10:28:00 flumazenil 2012- No Hosni Matilda 0.2 mg, 2 Memoria 6-24 Bassili mL, Route: l 15:28: IVP, Drug form: INJ, PRN, Dosing Weight 173.182, kg, PRN Benzodiaze pine Reversal, Initial dose, Start date: 10/27/12 10:28:00, Duration: 30 day, Stop date: 11/26/12 10:27:00 naloxone 2012- No Hosni Matilda 0.04 mg, Memoria 6-24 Bassili 0.1 mL, l 15:28: Route: IVP, Drug form: INJ, Q2MIN, Dosing Weight 173.182, kg, PRN Narcotic Reversal, Start date: 10/27/12 10:28:00, Duration: 8 doses or times, Stop date: Limited # of times morphine 2012- No Hosni Matilda 2 mg, 0.2 Memoria Sulfate 6-24 Bassili mL, Route: l 15:28: IVP, Drug form: INJ, Q5Min, Dosing Weight 173.182, kg, PRN Pain Score 4-6, Start date: 10/27/12 10:28:00, Duration: 5 doses or times, Stop date: Limited # of times meperidine 2012- No Hosni Matilda 12.5 mg, Memoria 6-24 Bassili 0.25 mL, l 15:28: Route: IVP, Drug form: INJ, Q30Min, Dosing Weight 173.182, kg, PRN Other -See Comment, For shivering, Start date: 10/27/12 10:28:00, Duration: 2 doses or times, Stop date: Limited # of times Lactated 2012-0 No Hosni Matilda 1,000 mL, Memoria Ringers 6-24 Bassili Rate: 25 l Injection 12:11: ml/hr, Phu n IV 1,000 mL 00 Infuse over: 40 hr, Route: IV, Dosing Weight 173.182 kg, Total Volume: 1,000, Start date: 10/27/12 7:11:00, Duration: 30 day, Stop date: 11/26/12 7:10:00 Invanz + 2013-0 No Garth P 1 gm, Memor ia Sodium 6-23 Buck Route: l Chloride 16:00: IVPB, [place] 0.9% IV 100 00 ONCALL, mL Start date: 10/26/12 11:00:00, Duration: 1 doses or times Amaryl 4 mg No 4 mg, 1 Mem oria oral tablet 6-10 tab, PO, l 16:31: Daily, 30 Main 04 tab, Substituti on Allowed, TAB Zocor 20 mg No 20 mg, 1 Me moria oral tablet 6-10 tab, PO, l 16:30: Daily, 30 Main 56 tab, Substituti on Allowed, Maintenanc e Synthroid No 75 Memoria 75 mcg 6-10 microgram, l (0.075 mg) 16:30: 1 tab, PO, H ermann oral tablet 47 Daily, 30 tab, Substituti on Allowed, TAB folic acid Yes Substituti M emoria 6-10 on Allowed l 16:30: Compton 38 Toprol-XL No 100 mg, 1 Mem oria 100 mg oral 6-10 tab, PO, l tablet, 16:30: Daily, 30 Karen nn extended 33 tab, release Substituti on Allowed, ERTAB Benicar 40 No 40 mg, 1 Mem oria mg oral 6-10 tab, PO, l tablet 16:30: Daily, 30 Phu n 26 tab, Substituti on Allowed, TAB Vital Signs Vital Name Observation Time Observation Value Comments Source Heart Rate 2012-10-30 20:44:00 [facility] [place] Diastolic (mm Hg) 2012-10-30 20:44:00 Mem orial [place] Respitory Rate 2012-10-30 20:44:00 Memcristela al Main Systolic (mm Hg) 2012-10-30 20:44:00 Tanner nilton Main Temperature Oral (F) 2012-10-30 20:44:00 98.0 F [facility] [place] Diastolic (mm Hg) 2012-10-30 16:31:00 Mem orial Main Systolic (mm Hg) 2012-10-30 16:31:00 Tanner rial Main Respitory Rate 2012-10-30 16:31:00 Memori al [place] Heart Rate 2012-10-30 16:31:00 Memorial Main Temperature Oral (F) 2012-10-30 16:31:00 98.6 F Memorial Main Systolic (mm Hg) 2012-10-30 12:25:00 Tanner rial Main Diastolic (mm Hg) 2012-10-30 12:25:00 Mem orial [place] Heart Rate 2012-10-30 12:25:00 Memorial Main Respitory Rate 2012-10-30 12:25:00 Memori al Main Temperature Oral (F) 2012-10-30 12:25:00 98.1 F Memorial Main Height 2012-10-13 16:20:00 154.94 cm [facility] [place] Weight 2012-10-13 16:20:00 [facility] [place] Diastolic (mm Hg) 2012-09-01 15:00:00 Mem orial [place] Systolic (mm Hg) 2012-09-01 15:00:00 Tanner rial Main Weight 2012-09-01 15:00:00 Memorial Main Height 2012-09-01 15:00:00 [facility] [place] Procedures Procedure Date / Time Performing Clinician Source Performed Gastric bypass laparoscopic 2012-10-27 05:00:00 Óscar Jane [facility] Main Bariatric operative [facility] michael procedure Cholecystectomy [facility] Main Hysterectomy [facility] Main Liver reconstruction [facility] Vascular surgery procedure Memor ial Main <sup>1</sup> Encounters Start End Encounter Admission Attending Care Care Encounter Source Date/Time Date/Time Type Type Clinicians Facility Department ID 2018-10-27 2018-10-27 Outpatient [facility] [id number] Memoria 06:28:00 06:28:00 l Main Memoria l [facility] 2012-09-01 2012-09-01 Outpatient Comprehen Comprehensi 2 [id number] [facility] 10:00:00 10:00:00 [facility] Care PA Results Test Description Test Time Test Comments Results Result Comments Source BEDSIDE GLUCOSE 2012-10-30 138 [facility] [place] TESTING 16:34:00 CHEMISTRY 2012-10-30 14.4 Memorial Karen nn 16:09:00 CHEMISTRY 2012-10-30 32 Memorial Karen nn 16:09:00 CHEMISTRY 2012-10-30 107 Memorial Karen nn 16:09:00 CHEMISTRY 2012-10-30 24 Memorial Karen nn 16:09:00 CHEMISTRY 2012-10-30 8.4 Memorial Karen nn 16:09:00 CHEMISTRY 2012-10-30 36 Memorial Karen nn 16:09:00 CHEMISTRY 2012-10-30 110 Memorial Karen nn 16:09:00 CHEMISTRY 2012-10-30 141 [facility] Karen nn 16:09:00 CHEMISTRY 2012-10-30 1.7 Memorial Karen nn 16:09:00 CHEMISTRY 2012-10-30 4.4 Memorial Karen nn 16:09:00 HEMATOLOGY 2012-10-30 15.1 Memorial Karen nn 16:09:00 HEMATOLOGY 2012-10-30 16:09:00 Test Item Value Reference Range Interpretation Comme nts MCH (test code = MCH) 31.4 pg 27.0-31.0 H Memorial WicqdfqKXDRRXCXFN0248-51-52 16:09:21791Fbgxgsdw HermannHEMATOLOGY 2012-10-30 16:09:0034.0[facility] WmalejeEUJUUEXUUO1626-24-99 16:09:0092.4[facility]orial JgzoktgYQRDKRYNZG1142-70-99 16:09:0032.1[facility]orial BmcoqoiBEWIYQQTWD0544-80-72 16:09:0011.1[facility] SskujtrDENWWOMQLY4715-21-55 16:09:0010.9[facility] Main LRMIQPABEC7808-27-06 16:09:0010.9[facility] ConvpzlTWRTUSZLIV7808-56-82 16:09:00 3.47Memorial YapnpzoYSARNMXZGO6692-66-10 16:09:00Slight *ABN*(10/30/2012 11:09:00)[facility] ZubrpydOCKBOEJSFG5867-45-79 16:09:000.6[facility] Main RAYDNSRVDD0627-07-70 16:09:00Slight *ABN*(10/30/2012 11:09:00)[facility] [place] KYTMMDPLRB4504-17-98 16:09:000.0[facility] AguburaCWEUCPWVBP1055-59-06 16:09:000.1 Memorial JbveaiiVUFFAZWEQA8169-48-10 16:09:000.4[facility] HermannHEMATOLOGY 2012-10-30 16:09:009.8[facility] YhuogsdHSOMAVUWJO9395-10-34 16:09:000.1[facility] CiofgenTHEKFIZTQX8402-33-31 16:09:005.2[facility]orial TpoyvmrYKOGEDMRPJ1661-14-91 16:09:00Normal (10/30/2012 11:09:00)[facility] DupmjclEJNQVMLTXH4013-99-91 16:09:0090.1[facility] IhrrypuJHEQUUNTKK6079-11-97 16:09:003.7[facility] [place] KVWYSQSIEF3997-62-18 16:09:000.9[facility] HermannBEDSIDE GLUCOSE TESTING 2012-10-30 10:43:72983Ephujcqh XpkbjtaALLCXQNJO6381-98-56 04:55:003.1[facility] PzuxvswAZGZIUEPA1222-79-87 04:55:001.1[facility] DptemtpUERTIPFQW5480-32-95 04:55:000.9[facility] VisleqfOLUWIAGTF6425-48-54 04:55:003.2[facility] Main COCKHDFXA8325-98-12 04:55:0069[facility] BblrinlNNWOWOGAU0618-89-13 04:55:0026 Memorial WrwjovcRZFHWUBYP3586-50-16 04:55:0016[facility] HermannCHEMISTRY 2012-10-30 04:55:000.3[facility] AvwfgjsPYHQIFNIN2917-35-52 04:55:0030[facility] LgegqrxNORSFKZIT9099-86-63 04:55:48728Zkcwuotv IqxnzhiLDMTVIPTN7731-00-59 04:55:0036[facility]orial CplxumyYBSGXZXSW5725-46-09 04:55:004.0[facility] [place] OMATTOKHA0596-64-38 04:55:33036Ajlnjcvi YrjouwdXYZSMIBBD2238-96-10 04:55:001.8 Memorial YgkkkhiPPGNWVQPF6366-71-90 04:55:10124Pwwzfbzw HermannCHEMISTRY 2012-10-30 04:55:0024[facility] SbhufcqWJXMBVMXS5256-65-06 04:55:002.8[facility]orial EzyqgwvSCOOVCDNU3296-66-08 04:55:008.1[facility] LeykfvzQBJRGNDMS4048-03-28 04:55:0020[facility] OhccwfoCLCOTMMFM2102-10-79 04:55:006.0[facility] [place] NTCQPCMTB5658-04-63 04:55:0012.0[facility] XavqbrhRZPDJRRLDO5903-93-84 04:55:00 32.8Memorial OqgyoqvKLBHSUSQKB7807-05-29 04:55:0030.8[facility] HermannHEMATOLOGY 2012-10-30 04:55:0015.4[facility] PysgriyRLLVZZZCJG1020-01-39 04:55:00 Test Item Value Reference Range Interpretation Comments MCH (test code = MCH) 29.9 pg 27.0-31.0 N Memorial DoctoknOIGNOKUCYE7933-74-34 04:55:0091.3[facility] HermannHEMATOLOGY 2012-10-30 04:55:67428Jvdfufnc KkgznmsXQIVSLEQPD9898-63-09 04:55:0011.5[facility] InikiqtSWQFENPHZY5694-14-83 04:55:003.37[facility] JzelrsqJYARPITDGR3528-50-22 04:55:0010.0[facility] PisgalgYKEETMEUYM5189-07-59 04:55:0010.1[facility] [place] UXIRRHXTZJ8674-41-55 04:55:00Slight *ABN*(10/29/2012 23:55:00)[facility] OEYXWAWXHC7470-36-74 04:55:00Slight *ABN*(10/29/2012 23:55:00)[facility] MVLLPVRPOD2329-52-86 04:55:00Slight *ABN*(10/29/2012 23:55:00)[facility] ICVUEPWYTC6917-64-49 04:55:001.0[facility] ZhknpbrSNAKSFYZTV7568-88-02 04:55:001.0 Memorial JnknfiuQNGHORPRVY2100-62-91 04:55:000.0[facility] HermannHEMATOLOGY 2012-10-30 04:55:003.0[facility]orial QjbfgqiUFYFWKHRVV4789-19-24 04:55:0013.0[facility]orial EmcgjaiVYNSRJMDJY4638-14-39 04:55:000.3Memorial BqvqjcxRRZJQJIDQN4390-38-47 04:55:000.1[facility] QxyxzlfSSRBNCMSJF3149-08-08 04:55:000.1[facility] [place] QAZXXOJPCP7774-32-32 04:55:009.5[facility]orial UxfshnrKMAZHPYDLR7339-93-16 04:55:00 82.0[facility] HermannBEDSIDE GLUCOSE WLUGNTW7801-27-53 02:29:52952Ubzaeddm QbembnjTQQUVLZII8282-13-81 20:55:2434Memorial QorthgoPQSHQIMKB0669-60-34 20:55:241.6[facility] JnvekisJWGACDXOCR1031-47-61 20:55:24 Test Item Value Reference Range Interpretation Comments PTT (test code = PTT) 21.5 s 22.9-35.8 L Memorial IrzznrzNKZRXVDATA4831-19-93 20:55:0040[facility] HermannCHEMISTRY 2012-10-29 17:54:75317.5[facility] SkgiszuUQADAWWMI9850-73-09 17:54:0011[facility] UmyxjkvUDNNZULUP9452-24-41 10:57:006.0[facility]orial QcdorwbDVDTTWIQJ6883-69-15 10:57:002.8[facility]orial QlvejzpFUSVLOABX9319-45-97 10:57:001.1[facility] [place] ASAANUJLA0432-93-54 10:57:0024[facility] ZvixslhGQWKISUQG7530-50-92 10:57:0033 Memorial JeoznhbJHBEUOIUP8109-61-01 10:57:000.7[facility] HermannCHEMISTRY 2012-10-29 10:57:0076Mem[facility] LbuenxlPXJLLGPHD3532-73-92 10:57:003.2[facility]orial RlynmliFQFRULKDU0160-09-58 10:57:0025Mem[facility] BpjclqqTDVRYWDES4823-86-52 10:57:04135Yoldwyja GpbczuvECGVNCAJQ3303-73-77 10:57:004.5[facility] [place] EFPFWQFHV6892-35-80 10:57:39958Szqfaeqg WncmledSOMUBCOXA0048-95-00 10:57:008.5 Memorial WwomekfSAUFMOVVI4851-08-79 10:57:53667Apcxbxud HermannCHEMISTRY 2012-10-29 10:57:0031[facility] WtlritqETXYPHMWV5016-08-27 10:57:0017[facility] CbjiwlgIMVOBYFDT3919-83-44 10:57:0015.5[facility]orial OzdsoqyXLMWMXNDIY0126-83-67 10:57:00Slight *ABN*(10/29/2012 05:57:00)[facility] UecjxlsVQLBWQIJLM9558-50-92 10:57:000.0[facility] SajewtoJMYFSLPVTU2955-53-24 10:57:00Normal (10/29/2012 05:57:00)[facility] UnmcfbaAXJVHOAGNR8375-79-25 10:57:000.1[facility] Main FKSATMTYGC5946-57-58 10:57:000.2[facility] EudazytWLNCWOCCLF2579-89-44 10:57:00 93.2[facility]orial TvrilzrEMQGFAGGSY7624-25-26 10:57:003.2[facility] HermannHEMATOLOGY 2012-10-29 10:57:003.3Memorial WaawagrMEUWRKJIRX0138-69-89 10:57:000.0[facility] LhzjkndTRNEIVPAIJ4804-70-12 10:57:0011.6[facility] QgtrmhdRJLDMIELND4071-18-60 10:57:000.4[facility] TpsojvmPUGJUPBASM7718-77-39 10:57:000.4[facility] Main VYMGZMIQIE5212-01-33 10:57:0012.4[facility] MvqjbfyFFPKGPFXMY5870-84-93 10:57:00 91.9[facility]orial IklxuzcDCQPDZCMUJ0146-57-99 10:57:0033.8[facility] HermannHEMATOLOGY 2012-10-29 10:57:00 Test Item Value Reference Range Interpretation Comments MCH (test code = MCH) 31.1 pg 27.0-31.0 H Memorial TfwddkvURVUXZQAAL5937-42-43 10:57:0011.5[facility] HermannHEMATOLOGY 2012-10-29 10:57:003.68[facility] RadegrxXMXVHOYLRG2821-96-22 10:57:0011.3[facility] WlgdrxpKKTLUGXWSJ8380-26-05 10:57:0033.9[facility] EmpacqjEBVGLCISGX4792-73-67 10:57:0014.9[facility] JvzxirqIOMKJYXVA1606-23-55 09:04:0017[facility] Main CTKORLWMX0692-77-66 09:04:003.2[facility] XtupdpcPOXMPMFQR1565-41-90 09:04:000.9 Memorial NfdpdpdKHJCBPEOK6478-14-02 09:04:002.9[facility] HermannCHEMISTRY 2012-10-28 09:04:006.1[facility] OqkhopzLBVGHFIHW5315-32-68 09:04:0027[facility] HgkmqgfHFAMGNUOK0406-24-15 09:04:000.6[facility] MxzdkmkOQCFCDWGM5997-08-51 09:04:0072[facility] LfjpxinDRVAWOOWG2408-57-56 09:04:0038[facility] [place] PVQWEBROKR4748-02-49 09:04:00Normal (10/28/2012 04:04:00)[facility] SGQKQYVKMW2258-80-46 09:04:00Normal (10/28/2012 04:04:00)[facility] Main QQKXXLRWTC6161-56-33 09:04:000.0[facility] KpgvsveRKXXKIADJM6932-90-24 09:04:000.0 [facility] HJPQDHA6766-16-37 12:30:00Negative (10/27/2012 07:30:00)[facility] QuydmnjOWUBNIXKU5807-49-26 16:55:92340[facility] FHWXZSHUC5583-19-30 16:55:0011*ABN*(10/13/2012 11:55:00)[facility] PQKKWKMGMJ5080-30-58 16:55:000.99[facility] IdevlgbRTSKWKZPXO3917-90-36 16:55:00 Test Item Value Reference Range Interpretation Comments PTT (test code = PTT) 38.9 s 22.9-35.8 H [facility] JsfcrmyJDUJGPMEQW3074-78-44 16:55:00 Test Item Value Reference Range Interpretation Comments PT (test code = PT) 13.3 s 12.0-14.7 N [facility] NmbpnfhZBNTWVARME1154-82-92 16:41:00Few /LPF *NA*(10/13/2012 11:41:00) [facility] ScibxbvMATSJAKLUS3054-39-08 16:41:00Performed *NA*(10/13/2012 11:41:00) [facility] CzxngqiYEVEHMRQDU0118-93-82 16:41:00Occasional /HPF *NA*(10/13/2012 11:41:00)[facility] JuqqstnZDOHIKFOMZ8144-27-38 16:41:001[facility] NNEMZWWMMP6791-94-81 16:41:00Negative (10/13/2012 11:41:00)[facility] OQZKVATWYB5845-23-48 16:41:00Negative (10/13/2012 11:41:00)[facility] YTVFNIPWEC6810-97-54 16:41:00Few /LPF *NA*(10/13/2012 11:41:00)[facility] OJATPRTYKS0852-89-76 16:41:00Negative (10/13/2012 11:41:00)[facility] EUAROZNUCJ3098-95-97 16:41:00Negative mg/dL *NA*(10/13/2012 11:41:00)[facility] GbriolhAVRMUWDWSS7160-64-25 16:41:00Negative mg/dL *NA*(10/13/2012 11:41:00) [facility] FkwfdojIVGEZYVCFH3999-78-94 16:41:00Negative *NA*(10/13/2012 11:41:00) [facility] YmmbgqeAJBSPQMGSU9978-20-85 16:41:0030 mg/dL *ABN*(10/13/2012 11:41:00) [facility] HiziycoLZBDBLXEJC4074-43-06 16:41:005.5[facility] 2012-10-13 16:41:00Clear (10/13/2012 11:41:00)[facility] 2012-10-13 16:41:001.016[facility] JfmpmhxRIOZVAGWFJ9863-04-30 16:41:00Yellow *NA*(10/13/2012 11:41:00)Tyler Quach
[2020-02-24] MEDS ORDERED: MIDAZOLAM HCL 2 MG/2 ML INJ ONE (08:20)
[2020-02-24] MEDS ORDERED: propofoL 200 MG/20 ML VIAL IV ONE (08:20)
[2020-02-24] MEDS ORDERED: FENTANYL CITR 100 MCG/2 ML ONE (08:20)
[2020-02-24] MEDS ORDERED: LIDOCAINE 2% MPF 5 ML VIAL ONE (08:20)
[2020-02-24] MEDS ORDERED: ONDANSETRON 4 MG/2 ML VIAL ONE (08:21)
[2020-02-24] MEDS ORDERED: KETOROLAC 30 MG/ML INJ ONE (09:21)
[2020-02-24] MEDS ORDERED: dexAMETHasone 4 MG/ML VIAL ONE (09:21)
[2020-02-24] MEDS ORDERED: NS 0.9% VIAL 10 ML ONE (09:31)
[2020-02-24] MEDS ORDERED: EPHEDRINE SULF 50 MG/ML VIAL ONE (09:31)
[2020-02-24 10:49] VITALS: TEMP 97.7; O2SAT 98
--- NOTE | 2020-02-24 10:57 | OP ---
Date of Procedure: 02/24/2020 Surgeon: Vini Berman MD [employer] Worker: None. Preoperative Diagnosis: Squamous cell carcinoma, left forearm. Postoperative Diagnosis: Squamous cell carcinoma, left forearm. Procedure: Wide excision of left forearm squamous cell carcinoma 9 x 4 cm with layered closure. Estimated Blood Loss: Minimal. Specimen: Left forearm squamous cell carcinoma. Findings: Margin is free. Anesthesia: General. Complications: None. The patient tolerated the procedure in stable condition, taken to Recovery in good general condition. Procedure In Detail: The patient was brought to the OR and placed in supine position. General anest hesia begun. Patient was prepped and draped in usual sterile fashion. Marcaine 0.5% was infiltrated locally. A 15-blade was used to make a 9 x 4 cm incision to include this 3 x 3 cm area of irregular raised red area. Subsequently, entire lesion excised and sent to Pathology. Frozen section revealed squamous cell carcinoma. Margins free. Flaps were created in the wound and then 3-0 chromic used t o approximate subcutaneous tissue and 4-0 nylon used to close skin. Sterile dressing was applied. T he patient was awakened and taken to Recovery in good general condition. Discharge Note: The patient will go to Day Surgery and home when stable. Disposition: Home. Condition: Stable. Discharge Instructions: Resume home medications and diet. Activity as tolerated. No heavy lifting. Keep dressing clean, dry. Follow up in my office in one week. Call for appointment. Tylenol No. 3 one tablet p.o. q.4 p.r.n. pain. /MODL Voice ID: [id number] Report ID: [id number]
[2020-02-24] MEDS ORDERED: HYDROCODONE/APAP 7.5/325 MG TAB ONE (11:14)
[2020-02-24 14:10] VITALS: BP 110/68
== END 2020-02-24 12:05 | disposition home or self-care (01) ==
LOC: OR 07:26
PROVIDERS: ATTEND Surgery
PROC: 0JBH0ZZ Excision of Left Lower Arm Subcutaneous Tissue and Fascia, Open Approach (ICD-10-PCS; principal; 2020-02-24 08:45)
DX: D04.62 Carcinoma in situ of skin of left upper limb, including shoulder (principal); Z20.828 Contact with and (suspected) exposure to other viral communicable diseases
CPT/HCPCS: 93005; 85025; 80048; 36415; 88331; 88332; 88305; 71046; 11606; U0002; J2704; J1100; J2250; J3010; J0690; J7120; J2405

== ENCOUNTER 2020-03-21 08:27 | Day surgery (SDC) | payer OTHER ==
--- OUTSIDE RECORDS SUMMARY | 2020-03-21 09:12 | XMS REPORT | Continuity of Care Document ---
:1950 Author Organization [facility] Information [place] Care Team Providers Name Role Phone [facility] Information [place] Unavailable Un available Problems Problem Status Onset Classification Date Comments Sourc e Date Reported MOBID OBESITY Active 013 [facility] PREOP CARDIOVSCLR EXAM Active Diagnosis 11/05/2012 [facility] Morbid obesity Active Diagnosis 11/05/2012 [facility] Hypothyroidism Active Problem 11/05/2012 [facility] Hypertension Active Diagnosis 11/05/2012 [facility] Hyperlipidemia Active Diagnosis 11/05/2012 [facility] Acid reflux Active Problem 11/01/2012 [facility] Anal carcinoma Active Problem 11/01/2012 [facility] Chemotherapy Resolved Problem 11/01/2012 [facility] Diabetes mellitus Active Problem 11/01/2012 [facility] Hypercholesterolemia Active Problem 11/01/2012 [facility] Hypertension Active Problem 11/01/2012 [facility] Hypothyroidism Active Problem 11/01/2012 [facility] Liver carcinoma Resolved Problem 11/01/2012 [facility] Morbid obesity Active Problem 11/01/2012 [facility] Radiation Resolved Problem 11/01/2012 [facility] Sleep apnea Active Problem 11/01/2012 [facility] MORBID OBESITY Active [facility] Medications Medication Details Route Status Patient Ordering Order Source Instructions Provider Date Lortab 500 15 ml, PO, Q4H, PO [facility] Buck 10/30[facility] mg-7.5 mg/15 PRN, 300 mL, 2012 [facility] mL oral for pain, [facility] elixir Substitution Allowed, Maintenance, ELIX Lovenox 40 40 mg, SUB-Q, SUB-Q Active Buck 10/30[facility] mg/0.4 mL Q12H, 20 syr, 2012 [facility] subcutaneous Substitution [facility] solution Allowed, SOLN Metoprolol 50 mg, 1 tab, PO Active Buck 10/30/ Tartrate 50 PO, BID, [address] [facility] mg oral tab, [facility] tablet Substitution Allowed Lasix 40 mg, 4 mL, IV No Buck 10/30[facility] Route: IV, Drug Longer 2012 [facility] form: INJ, [facility] ONCE, Start date: 10/30/12 10:32:00, Stop date: 10/30/12 10:32:00 Sodium 500 mL, Rate: IV No Buck 10/29/ MH Chloride 0.9% bolus x1, Longer 2012 [facility] IV 500 mL Route: IV, [facility] Dosing Weight 173.182 kg, Total Volume: 500, Start date: 10/29/12 12:49:00, Duration: 1 doses or times, Stop date: 10/29/12 14:48:00 Lopressor 5 mg, 5 mL, IV No Buck 10/29/ MH Route: IV, Drug Longer 2012 [facility] form: INJ, Q6H, [facility] Start date: 10/29/12 12:49:00, Duration: 30 day, Stop date: 11/28/12 12:00:00 Sodium IV, 1000 ml/hr, IV No Buck 10/29/ MH Chloride 0.9% [facility], [facility]: [facility] 7:42:00, 1,000 ml Sodium IV, 1000 ml/hr, IV No Buck 10/29/ MH Chloride 0.9% ONCE, Start Longer 2012 [facility] IV date: 10/29/12 [facility] 7:09:00, 1,000 ml Sodium IV, 1000 ml/hr, IV No Buck 10/28/ MH Chloride 0.9% ONCE, Start Longer 2012 [facility] IV date: 10/28/12 [facility] 13:30:00, 1,000 ml Lovenox 40 mg, 0.4 mL, SUB-Q No Buck 10/28/ Route: SUB-Q, Longer 2012 [facility] Drug form: INJ, [facility] [id number], Start date: 10/28/12 12:00:00, Duration: 30 day, Stop date: 11/27/12 0:00:00 acetaminophen 15 mL, Route: PO No Buck 10/28/ MH -hydrocodone PO, Drug Form: Longer 2012 [facility] SOLN, Q4H, PRN [facility] Pain, Start date: 10/28/12 11:14:00, Duration: 30 day, Stop date: 11/27/12 11:13:00 Tylenol 650 mg, 20.3 PO No Buck 10/28/ MH mL, Route: PO, Longer 2012 [facility] Drug form: LIQ, [facility] Q4H, PRN Pain Score 1-3, Start date: 10/28/12 11:14:00, Duration: 30 day, Stop date: 11/27/12 11:13:00 Lactated IV, 1000 ml/hr, IV No Primomo 10/28/ [place] ONCE, Start Longer 2012 [facility] Injection IV date: 10/28/12 [facility] 7:09:00, 1,000 ml heparin 5,000 unit, 1 SUB-Q No Buck 10/28/ mL, Route: Longer 2012 [facility] SUB-Q, Drug [facility] form: INJ, ONCE, Start date: 10/28/12 0:00:00, Stop date: 10/28/12 0:00:00 ketorolac 30 30 mg, 1 mL, IV No Buck 10/28/ mg/mL Route: IV, Drug Longer 2012 [facility] injectable form: INJ, Q6H, [facility] solution Start date: 10/27/12 19:00:00, Duration: 4 day, Stop date: 10/31/12 13:00:00 Vasotec 1.25 mg, 1 mL, IVP No Buck 10/27/ Route: IVP, Longer 2012 [facility] Drug form: INJ, [facility] Q6H, PRN Hypertension, Start date: 10/27/12 14:24:00, Duration: 30 day, Stop date: 11/26/12 14:23:00 Phenergan 25 mg, 1 mL, IM No Buck 10/27/ Route: IM, Drug Longer 2012 [facility] form: INJ, Q4H, [facility] PRN Nausea, Start date: 10/27/12 14:24:00, Duration: 30 day, Stop date: 11/26/12 14:23:00 Lactated 1,000 mL, Rate: IV No Buck 10/27/ Ringers 80 ml/hr, Longer 2012 [facility] Injection IV Infuse over: [facility] 1,000 mL 12.5 hr, Route: IV, Dosing Weight 173.182 kg, Total Volume: 1,000, Start date: 10/27/12 14:23:00, Stop date: 11/26/12 14:22:00 insulin 5 unit, 0.05 SUB-Q No Buck 10/27/ regular 100 mL, Route: Longer 2012 [facility] units/mL SUB-Q, Drug Active [facility] human form: SOLN, recombinant Q6H, PRN Blood Glucose Results, Start date: 10/27/12 14:20:00, Duration: 30 day, Stop date: 11/26/12 14:19:00 Dextrose 50% 25 mL, Route: IVP No Buck 10/27/ MH in Water IV IVP, Start Longer 2012 [facility] date: 10/27/12 [facility] 14:20:00, Duration: 30 day, Stop date: 11/26/12 14:19:00, PRN Blood Glucose Results Dextrose 50% 50 mL, Route: IVP No Buck 10/27/ MH in Water IV IVP, Start Longer 2012 [facility] date: 10/27/12 [facility] 14:19:00, Duration: 30 day, Stop date: 11/26/12 14:18:00, PRN Blood Glucose Results Zofran 4 mg, 2 mL, IVP No Buck 10/27/ Route: IVP, [facility] 2012 [facility] Drug form: INJ, [place] Q8H, PRN Nausea & Vomiting, Start date: 10/27/12 12:36:00, Duration: 30 day, Stop date: 11/26/12 12:35:00 Benadryl 25 mg, 0.5 mL, IVP No Buck Route: IVP, 2012 [facility] Drug form: INJ, [place] Q6H, PRN Itching, Start date: 10/27/12 12:36:00, Duration: 30 day, Stop date: 11/26/12 12:35:00 naloxone 0.2 mg, 0.5 mL, IVP No Buck Route: IVP, Longer 2012 [facility] Drug form: INJ, [place] Q5Min, PRN Narcotic Reversal, Start date: 10/27/12 12:36:00, Duration: 30 day, Stop date: 11/26/12 12:35:00 morphine IV, Start date: IV No Buck Sulfate 30 mg 10/27/12 [facility] 2012 [facility] 12:35:00, Active [facility] Duration: 30, 30 ml, 173.182 ondansetron 4 mg, 2 mL, IVP No Antonio Route: IVP, 2012 [facility] Drug form: INJ, [place] ONCE, Dosing Weight 173.182, kg, PRN Nausea & Vomiting, Start date: 10/27/12 10:28:00 flumazenil 0.2 mg, 2 mL, IVP No [facility] Route: IVP, 2012 [facility] Drug form: INJ, [place] PRN, Dosing Weight 173.182, kg, PRN Benzodiazepine Reversal, Initial dose, Start date: 10/27/12 10:28:00, Duration: 30 day, Stop date: 11/26/12 10:27:00 naloxone 0.04 mg, 0.1 IVP No [facility] mL, Route: IVP, 2012 [facility] Drug form: INJ, [place] Q2MIN, Dosing Weight 173.182, kg, PRN Narcotic Reversal, Start date: 10/27/12 10:28:00, Duration: 8 doses or times, Stop date: Limited # of times morphine 2 mg, 0.2 mL, IVP No [facility] Sulfate Route: IVP, 2012 [facility] Drug form: INJ, [place] Q5Min, Dosing Weight 173.182, kg, PRN Pain Score 4-6, Start date: 10/27/12 10:28:00, Duration: 5 doses or times, Stop date: Limited # of times meperidine 12.5 mg, 0.25 IVP No [facility] mL, Route: IVP, Longer 2012 [facility] Drug form: INJ, [place] Q30Min, Dosing Weight 173.182, kg, PRN Other -See Comment, For shivering, Start date: 10/27/12 10:28:00, Duration: 2 doses or times, Stop date: Limited # of times Lactated 1,000 mL, Rate: IV No [facility] Ringers 25 ml/hr, Longer 2012 [facility] Injection IV Infuse over: 40 [facility] 1,000 mL hr, Route: IV, Dosing Weight 173.182 kg, Total Volume: 1,000, Start date: 10/27/12 7:11:00, Duration: 30 day, Stop date: 11/26/12 7:10:00 Invanz + 1 gm, Route: IVPB No Buck Sodium IVPB, ONCALL, Longer 2012 [facility] Chloride 0.9% Start date: [facility] IV 100 mL 10/26/12 11:00:00, Duration: 1 doses or times Amaryl 4 mg 4 mg, 1 tab, PO No oral tablet PO, Daily, 30 Longer 2012 [facility] tab, [facility] Substitution Allowed, TAB Zocor 20 mg 20 mg, 1 tab, PO No oral tablet PO, Daily, 30 Longer 2012 [facility] tab, [facility] Substitution Allowed, Maintenance Synthroid 75 75 microgram, 1 PO No mcg (0.075 tab, PO, Daily, Longer 2012 [facility] mg) oral 30 tab, [facility] tablet Substitution Allowed, TAB folic acid Substitution Active Allowed 2012 [facility] Toprol-XL 100 100 mg, 1 tab, PO No mg oral PO, Daily, [address] [facility] tablet, tab, [facility] extended Substitution release Allowed, ERTAB Benicar 40 mg 40 mg, 1 tab, PO No oral tablet PO, Daily, 30 [facility] Substitution Allowed, TAB Nasonex 2 spray(s) intranasally [...] type Reported NKFA drug Allergy Active allergy [facility] Immunizations No Data Provided for This Section Results Order Name Results Value Reference Date Interpretation Comments Janeen rce Range BEDSIDE Gluc POC 138 70 - 99 10/30 HI <sup>1</sup>I GLUCOSE Lif /[address] [facility] TESTING Data: [facility] Upper Reportable Limit: 200 mg/dL. CHEMISTRY AGAP 14.4 10.0 - 10/30 Normal MH 20. [facility] CHEMISTRY eGFR 32 10/30 NA <sup>4</sup>R [facility] Comment: The [facility] eGFR is calculated using the CKD-EPI formula. [...] Lvl 107 95 - 109 10/30 Normal [facility] CHEMISTRY CO2 24 24 - 32 10/30 Normal [facility] CHEMISTRY Calcium Lvl 8.4 8.5 - 10.5 10/30 LOW [facility] CHEMISTRY BUN 36 7 - 22 10/30 HI [facility] CHEMISTRY Glucose Lvl 110 70 - 99 10/30 HI <sup>7</sup>I nterpretive [facility] Data: [facility] reference range values reflect the clinical guidelines
of the [place] [employer]. CHEMISTRY Sodium Lvl 141 135 - 145 10/30 Normal [facility] CHEMISTRY Creatinine 1.7 0.5 - 1.4 10/30 HI [facility] CHEMISTRY Potassium 4.4 3.5 - 5.1 10/30 Normal [facility] HEMATOLOGY RDW 15.1 11.5 - 10/30 HI MH 14.5 [facility] HEMATOLOGY MCH 31.4 27.0 - 10/30 HI MH 31. [facility] HEMATOLOGY Platelet 134 133 - 450 10/30 Normal /2012 [facility] HEMATOLOGY MCHC 34.0 32.0 - 10/30 Normal MH 36.0 [facility] HEMATOLOGY MCV 92.4 81.0 - 10/30 Normal MH 99.0 /2012 [facility] HEMATOLOGY Hct 32.1 36.0 - 10/30 LOW MH 48.0 /2012 [facility] HEMATOLOGY MPV 11.1 7.4 - 10.4 10/30 HI MH /2012 [facility] HEMATOLOGY Hgb 10.9 12.0 - 10/30 LOW MH 16.0 /2012 [facility] HEMATOLOGY WBC 10.9 3.7 - 10.4 10/30 HI /2012 [facility] HEMATOLOGY RBC 3.47 4.20 - 10/30 LOW MH 5.40 /2012 [facility] HEMATOLOGY Neut Vac Slight None Seen 10/30 ABN *ABN* /2012 [facility] (10/30/2012 11:09:00) Ci HEMATOLOGY Monocytes # 0.6 0.0 - 0.8 10/30 Normal MH /2012 [facility] HEMATOLOGY Large Plt Slight None Seen 10/30 ABN *ABN* /2012 [facility] (10/30/2012 11:09:00) Ci HEMATOLOGY Basophils # 0.0 0.0 - 0.2 10/30 Normal /2012 [facility] HEMATOLOGY Eosinophils 0.1 0.0 - 0.5 10/30 Normal MH # /2012 [facility] HEMATOLOGY Lymphocytes 0.4 1.0 - 5.5 10/30 LOW MH # /2012 [facility] HEMATOLOGY Segs-Bands # 9.8 1.5 - 8.1 10/30 HI MH /2012 [facility] HEMATOLOGY Basophils 0.1 0.0 - 1.0 10/30 Normal MH /2012 [facility] HEMATOLOGY Monocytes 5.2 2.0 - 12.0 10/30 Normal /2012 [facility] HEMATOLOGY RBC Morph Normal 10/30 Normal (10/30/2012 11:09:00) /2012 [facility] HEMATOLOGY Segs 90.1 45.0 - 10/30 HI MH 75.0 [facility] HEMATOLOGY Lymphocytes 3.7 20.0 - 10/30 LOW MH 40.0 [facility] HEMATOLOGY Eosinophils 0.9 0.0 - 4.0 10/30 Normal MH /2012 [facility] BEDSIDE Gluc POC 108 70 - 99 10/30 HI <sup>2</sup>I GLUCOSE Lifscn /[address] [facility] TESTING Data: [facility] Upper Reportable Limit: 200 mg/dL. CHEMISTRY Phosphorus 3.1 2.5 - 4.5 10/30 Normal /2012 [facility] CHEMISTRY Magnesium 1.1 1.8 - 2.4 10/30 LOW MH [facility] CHEMISTRY A/G Ratio 0.9 0.7 - 1.6 10/30 Normal [facility] CHEMISTRY Globulin 3.2 2.0 - 4.0 10/30 Normal [facility] CHEMISTRY Alk Phos 69 39 - 136 10/30 Normal [facility] CHEMISTRY ALT 26 0 - 65 10/30 Normal [facility] CHEMISTRY AST 16 0 - 37 10/30 Normal [facility] CHEMISTRY Bili Total 0.3 0.2 - 1.3 10/30 Normal [facility] CHEMISTRY eGFR 30 10/30 NA <sup>5</sup>R [facility] Comment: The [facility] eGFR is calculated using the CKD-EPI formula. [...] 70 - 99 10/30 HI <sup>8</sup>I nterpretive [facility] Data: [facility] reference range values reflect the clinical guidelines
of the [place] [employer]. CHEMISTRY BUN 36 7 - 22 10/30 HI [facility] CHEMISTRY Potassium 4.0 3.5 - 5.1 10/30 Normal [facility] CHEMISTRY Chloride Lvl 108 95 - 109 10/30 Normal [facility] CHEMISTRY Creatinine 1.8 0.5 - 1.4 10/30 HI MH [facility] CHEMISTRY Sodium Lvl 140 135 - 145 10/30 Normal [facility] CHEMISTRY CO2 24 24 - 32 10/30 Normal MH /2012 [facility] CHEMISTRY Albumin Lvl 2.8 3.5 - 5.0 10/30 LOW MH /2012 [facility] CHEMISTRY Calcium Lvl 8.1 8.5 - 10.5 10/30 LOW MH /2012 [facility] CHEMISTRY B/C Ratio 20 6 - 25 10/30 Normal /2012 [facility] CHEMISTRY Total 6.0 6.4 - 8.4 10/30 LOW MH Protein /2012 [facility] CHEMISTRY AGAP 12.0 10.0 - 10/30 Normal MH 20.0 /2012 [facility] HEMATOLOGY MCHC 32.8 32.0 - 10/30 Normal MH 36.0 /2012 [facility] HEMATOLOGY Hct 30.8 36.0 - 10/30 LOW MH 48.0 /2012 [facility] HEMATOLOGY RDW 15.4 11.5 - 10/30 HI MH 14.5 [facility] HEMATOLOGY MCH 29.9 27.0 - 10/30 Normal MH 31.0 [facility] HEMATOLOGY MCV 91.3 81.0 - 10/30 Normal MH 99.0 [facility] HEMATOLOGY Platelet 128 133 - 450 10/30 LOW <sup>14</sup> Result [facility] Comment: [place] reviewed, spoke to cuong joan 10/30/2012 00:56 gr HEMATOLOGY MPV 11.5 7.4 - 10.4 10/30 HI MH /2012 [facility] HEMATOLOGY RBC 3.37 4.20 - 10/30 LOW MH 5.40 /2012 [facility] HEMATOLOGY WBC 10.0 3.7 - 10.4 10/30 Normal /2012 [facility] HEMATOLOGY Hgb 10.1 12.0 - 10/30 LOW MH 16.0 [facility] HEMATOLOGY Elliptocyte Slight None Seen 10/30 ABN MH *ABN* /2012 [facility] (10/29/2012 23:55:00) Ci ty HEMATOLOGY Large Plt Slight None Seen 10/30 ABN MH *ABN* /2012 [facility] (10/29/2012 23:55:00) Ci ty HEMATOLOGY Tear Cell Slight None Seen 10/30 ABN *ABN* /2012 [facility] (10/29/2012 23:55:00) Ci ty HEMATOLOGY Monocytes 1.0 2.0 - 12.0 10/30 LOW [facility] HEMATOLOGY Eosinophils 1.0 0.0 - 4.0 10/30 Normal MH /2012 [facility] HEMATOLOGY Atypical 0.0 <=0.0 10/30 Normal MH Lymphs /2012 [facility] HEMATOLOGY Lymphocytes 3.0 20.0 - 10/30 LOW MH 40.0 /2012 [facility] HEMATOLOGY Bands 13.0 0.0 - 11.0 10/30 HI MH /2012 [facility] HEMATOLOGY Lymphocytes 0.3 1.0 - 5.5 10/30 LOW MH # /2012 [facility] HEMATOLOGY Monocytes # 0.1 0.0 - 0.8 10/30 Normal MH /2012 [facility] HEMATOLOGY Eosinophils 0.1 0.0 - 0.5 10/30 Normal MH # /2012 [facility] HEMATOLOGY Segs-Bands # 9.5 1.5 - 8.1 10/30 HI MH /2012 [facility] HEMATOLOGY Segs 82.0 45.0 - 10/30 HI MH 75.0 /2012 [facility] BEDSIDE Gluc POC 130 70 - 99 10/30 HI <sup>3</sup>I GLUCOSE Lifscn /[address] [facility] TESTING Data: [facility] Upper Reportable Limit: 200 mg/dL. CHEMISTRY eGFR 34 10/29 NA <sup>6</sup>R [facility] Comment: The [facility] eGFR is calculated using the CKD-EPI formula. [...] 0.5 - 1.4 10/29 HI MH Lvl [facility] HEMATOLOGY PTT 21.5 22.9 - 10/29 LOW <sup>17</sup> MH 35.8 /[address] [facility] Data: Heparin [facility] Therapeutic Range: 57 - 92 Seconds HEMATOLOGY Platelet 40 133 - 450 10/29 LOW <sup>15</sup> Result [facility] Comment: Barby Selena acevedo agreed to verify. 10/29/2012 18:47 CHEMISTRY U Creatinine 474.5 10/29 NA <sup>12</sup> Interpretive [facility] Data: No [facility] established reference ranges. CHEMISTRY U Sodium 11 10/29 NA <sup>13</sup> Interpretive [facility] Data: No [facility] established reference ranges. CHEMISTRY Total 6.0 6.4 - 8.4 10/29 LOW MH Protein [facility] CHEMISTRY Globulin 2.8 2.0 - 4.0 10/29 Normal [facility] CHEMISTRY A/G Ratio 1.1 0.7 - 1.6 10/29 Normal [facility] CHEMISTRY AST 24 0 - 37 10/29 Normal [facility] CHEMISTRY ALT 33 0 - 65 10/29 Normal [facility] CHEMISTRY Bili Total 0.7 0.2 - 1.3 10/29 Normal [facility] CHEMISTRY Alk Phos 76 39 - 136 10/29 Normal [facility] CHEMISTRY Albumin Lvl 3.2 3.5 - 5.0 10/29 LOW [facility] CHEMISTRY CO2 25 24 - 32 10/29 Normal [facility] CHEMISTRY Sodium Lvl 141 135 - 145 10/29 Normal [facility] CHEMISTRY Potassium 4.5 3.5 - 5.1 10/29 Normal MH Lvl [facility] CHEMISTRY Chloride Lvl 105 95 - 109 10/29 Normal [facility] CHEMISTRY Calcium Lvl 8.5 8.5 - 10.5 10/29 Normal [facility] CHEMISTRY Glucose Lvl 107 70 - 99 10/29 HI <sup>9</sup>I nterpretive [facility] Data: [facility] reference range values reflect the clinical guidelines
of the [place] [employer]. CHEMISTRY BUN 31 7 - 22 10/29 HI [facility] CHEMISTRY B/C Ratio 17 6 - 25 10/29 Normal [facility] CHEMISTRY AGAP 15.5 10.0 - 10/29 Normal MH 20.0 [facility] HEMATOLOGY Large Plt Slight None Seen 10/29 ABN MH *ABN* /2012 [facility] (10/29/2012 05:57:00) Ci ty HEMATOLOGY Basophils # 0.0 0.0 - 0.2 10/29 Normal MH /2012 [facility] HEMATOLOGY RBC Morph Normal 10/29 Normal MH (10/29/2012 05:57:00) /2012 [facility] HEMATOLOGY Eosinophils 0.1 0.0 - 4.0 10/29 Normal MH /2012 [facility] HEMATOLOGY Basophils 0.2 0.0 - 1.0 10/29 Normal MH /2012 [facility] HEMATOLOGY Segs 93.2 45.0 - 10/29 HI MH 75.0 /2012 [facility] HEMATOLOGY Lymphocytes 3.2 20.0 - 10/29 LOW MH 40.0 /2012 [facility] HEMATOLOGY Monocytes 3.3 2.0 - 12.0 10/29 Normal MH /2012 [facility] HEMATOLOGY Eosinophils 0.0 0.0 - 0.5 10/29 Normal MH # /2012 [facility] HEMATOLOGY Segs-Bands # 11.6 1.5 - 8.1 10/29 HI MH /2012 [facility] HEMATOLOGY Lymphocytes 0.4 1.0 - 5.5 10/29 LOW MH # /2012 [facility] HEMATOLOGY Monocytes # 0.4 0.0 - 0.8 10/29 Normal MH /2012 [facility] HEMATOLOGY WBC 12.4 3.7 - 10.4 10/29 HI MH /2012 [facility] HEMATOLOGY MCV 91.9 81.0 - 10/29 Normal MH 99.0 /2012 [facility] HEMATOLOGY Hct 33.8 36.0 - 10/29 LOW MH 48.0 /2012 [facility] HEMATOLOGY MCH 31.1 27.0 - 10/29 HI MH 31.0 /2012 [facility] HEMATOLOGY Hgb 11.5 12.0 - 10/29 LOW MH 16.0 [facility] HEMATOLOGY RBC 3.68 4.20 - 10/29 LOW MH 5.40 /2012 [facility] HEMATOLOGY MPV 11.3 7.4 - 10.4 10/29 HI MH /2012 [facility] HEMATOLOGY MCHC 33.9 32.0 - 10/29 Normal MH 36.0 [facility] HEMATOLOGY RDW 14.9 11.5 - 10/29 HI MH 14.5 [facility] BEDSIDE Comment1 Notify 10/28 NA GLUCOSE RN/MD /2012 [facility] BEDSIDE Comment1 Notify 10/28 NA GLUCOSE RN/ /2012 [facility] CHEMISTRY B/C Ratio 17 6 - 25 10/28 Normal [facility] CHEMISTRY Globulin 3.2 2.0 - 4.0 10/28 Normal MH [facility] CHEMISTRY A/G Ratio 0.9 0.7 - 1.6 10/28 Normal MH [facility] CHEMISTRY Albumin Lvl 2.9 3.5 - 5.0 10/28 LOW MH [facility] CHEMISTRY Total 6.1 6.4 - 8.4 10/28 LOW MH Protein [facility] CHEMISTRY AST 27 0 - 37 10/28 Normal [facility] CHEMISTRY Bili Total 0.6 0.2 - 1.3 10/28 Normal [facility] CHEMISTRY Alk Phos 72 39 - 136 10/28 Normal [facility] CHEMISTRY ALT 38 0 - 65 10/28 Normal [facility] HEMATOLOGY Plt Morph Normal 10/28 Normal (10/28/2012 04:04:00) [facility] HEMATOLOGY RBC Morph Normal 10/28 Normal (10/28/2012 04:04:00) [facility] HEMATOLOGY Basophils 0.0 0.0 - 1.0 10/28 Normal [facility] HEMATOLOGY Basophils # 0.0 0.0 - 0.2 10/28 Normal [facility] BEDSIDE Comment1 Notify 10/27 NA GLUCOSE RN/MD /2012 [facility] BLOOD BANK AB Scrn Negative 10/27 Normal RESULTS (Tube) (10/27/2012 07:30:00) [facility] BLOOD BANK ABO/Rh A POS 10/27 Unknown RESULTS /2012 [facility] CHEMISTRY Vitamin B1 132 78 - 185 10/13 NA <sup>10</sup> Result [facility] Comment: [place] Performed at:
[facility]<br/ >[address] [place] [address]
koffi Sandip [facility] [place] [address] Mel Hines MD, PhD CHEMISTRY Vitamin D, 11 30 - 100 10/13 ABN <sup>11</sup> 25-OH, Total *ABN* /2012 Interpretive Peri greene (10/13/2012 11:55:00) Data: Ci ty Reference range is based on recommendatio ns in the Endocrine<br/ >Society Clinical Practice Guideline (J Clin Endocrinol Metab
201 1;[id number] 0) HEMATOLOGY INR 0.99 0.85 - 10/13 Normal <sup>16</sup> MH 1.[address] [facility] Data: [facility] RECOMMENDED RANGES FOR PROTIME INR:
2.0-3.0 for most medical and surgical thromboemboli c states.
2.5-3.5 for artificial heart valves and recurrent embolism.<br/ >
INR SHOULD BE USED ONLY FOR PATIENTS ON STABLE ANTICOAGULANT THERAPY. HEMATOLOGY PTT 38.9 22.9 - 10/13 HI <sup>18</sup> MH 35.8 /[address] [facility] Data: [facility] Therapeutic Range: 57 - 92 Seconds HEMATOLOGY PT 13.3 12.0 - 10/13 Normal MH 14.7 /2012 [facility] URINALYSIS UA 0.1 - 1.0 10/13 [facility] Urobilinogen /2012 [facility] URINALYSIS UA Mucus Few /LPF None Seen 10/13 [facility] *NA* /2012 [facility] (10/13/2012 11:41:00) Ci ty URINALYSIS Micro? [facility] 10[facility] (10/13/2012 11:41:00) Ci ty URINALYSIS UA Bacteria Occasional /HPF None Seen 10/13 [facility] *NA* /2012 [facility] (10/13/2012 11:41:00) Ci ty URINALYSIS UA WBC 1 0 - 5 10/13 Normal [facility] URINALYSIS UA Nitrite Negative Negative 10/13 Normal (10/13/2012 11:41:00) [facility] URINALYSIS UA Leuk Est Negative Negative 10/13 Normal (10/13/2012 11:41:00) [facility] URINALYSIS UA Sq Epi Few /LPF Few 10/13 [facility] *NA* /2012 [facility] (10/13/2012 11:41:00) Ci ty URINALYSIS UA Blood Negative Negative 10/13 Normal (10/13/2012 11:41:00) [facility] URINALYSIS UA Glucose Negative mg/dL Negative 10/13 [facility] *NA* [facility] (10/13/2012 11:41:00) Ci ty URINALYSIS UA Ketones Negative mg/dL Negative 10/13 [facility] *NA* [facility] (10/13/2012 11:41:00) Ci ty URINALYSIS UA Bili Negative Negative 10/13 [facility] *NA* [facility] (10/13/2012 11:41:00) Ci ty URINALYSIS UA Protein 30 mg/dL Negative 10/13 ABN *ABN* /2012 [facility] (10/13/2012 11:41:00) Ci ty URINALYSIS UA pH 5.5 5.0 - 8.0 10/13 Normal [facility] URINALYSIS UA Turbidity Clear Clear 10/13 Normal (10/13/2012 11:41:00) /2012 [facility] URINALYSIS UA Spec Grav 1.016 <=1.030 10/13 Normal [facility] URINALYSIS UA Color Yellow Yellow 10/13 NA *NA* /2012 [facility] (10/13/2012 11:41:00) Ci ty Pathology Reports No Data Provided for This Section Diagnostic Reports Report Value Date Source Stomach UGI (water OMNIPAQUE UPPER GI SERIES 10/28/2012 10/29/[address] [facility] soluble contrast) The fluoroscopy time is 0.5 minute. Small volume of Omnipaque gi julia orally passed easily from the distal esophagus into the proximal small bowel via the gastrojejunostomy. No contrast extravasation or obstruction is seen. Chest 2 views EXAMINATION: Chest x-ray 2 views 10/13/2012 [facility] COMPARISON: NONE AVAILABLE COMMENTS: The [...] Date Comments Source Heart Rate 108 10/30/2012 [facility] y Diastolic (mm Hg) 74 10/30/2012 [facility] Respitory Rate 16 10/30/2012 [facility] Systolic (mm Hg) 139 10/30/2012 [facility] Temperature Oral (F) 98.0 F 10/30/[address] [facility] Diastolic (mm Hg) 48 10/30/2012 [facility] Systolic (mm Hg) 110 10/30/2012 [facility] Respitory Rate 16 10/30/2012 [facility] Heart Rate 102 10/30/2012 [facility] y Temperature Oral (F) 98.6 F 10/30/[address] [facility] Systolic (mm Hg) 113 10/30/2012 [facility] Diastolic (mm Hg) 72 [facility]/30/[facility] Heart Rate 106 10/30/2012 [facility] y Respitory Rate 16 10/30/[address] [facility] Barbie ity Temperature Oral (F) 98.1 F 10/30/2012 Tanner callaway [facility] Height 154.94 cm 10/13/2012 [facility] y Weight 173.182 10/13/[address] [facility] y Diastolic (mm Hg) 98 09/01/2012 [facility] Systolic (mm Hg) 160 09/01/2012 [facility] Weight 374.2 09/01/2012 [facility] Height 63 09/01/2012 [facility] Encounters Location Location Encounter Encounter Reason Attending ADM DC Stat us Source Details Type Number For Provider Date Date Visit Comprehensi Unknown [id number] 09/01 09/01 [facility] [id number] /[id number] [facility] [place] [id number] Car e [facility] Inpatient [id number] [facility] 10/27 10/30 Dis charg [facility] /2012 ed [facility] Procedures Procedure Code Date Perfomer Comments Source Gastric bypass [id number] [facility] laparoscopic [facility] Bariatric operative [id number] [id number] [id number] [facility] Liver reconstruction [id number] [id number] <sup>1</sup> Assessment and Plan No Data Provided [...]
--- OUTSIDE RECORDS SUMMARY | 2020-03-21 09:14 | XMS REPORT | Continuity of Care Document ---
:1950 Author Organization [facility] t Address [address] [place] [address] [place] [address] Care Team Providers Name Role Phone Unavailable Unavailable Unavailable Problems Condition Condition Condition Status Onset Resolution Last Treating Co mments Source Name Details Category Date Date Treatment Clinician Date MOBID Diagnosis Active 2012-10-27 Mem oria OBESITY 5-16 13:28:00 l MOBID 00:00: Main OBESITY 00 Active 09/18/2012 [facility] Chemothera Problem Resolve 2012-11-01 Memoria py d 20:14:36 l [place] Chemothera py Resolved Problem 11/01/2012 [facility] Liver Problem Resolve 2012-11-01 Tanner isaias carcinoma d 20:14:36 l Liver Main carcinoma Resolved Problem 11/01/2012 [facility] Radiation Problem Resolve 2012-11-01 M emoria d 20:14:36 l [place] Radiation Resolved Problem 11/01/2012 [facility] PREOP Diagnosis Active 2012-11-05 Mem oria CARDIOVSCL 04:11:47 l R EXAM PREOP Main CARDIOVSCL R EXAM Active Diagnosis 11/05/2012 [facility] Morbid Diagnosis Active 2012-11-05 Mem oria obesity 04:11:47 l Morbid [place] obesity Active Diagnosis 11/05/2012 [facility] Hypothyroi Problem Active 2012-11-05 M emoria dism 04:11:47 l (acquired) Phu n Hypothyroi dism (acquired) Active Problem 11/05/2012 [facility] Hypertensi Diagnosis Active 2012-11-05 Memoria on 04:11:47 l Main Hypertensi on Active Diagnosis 11/05/2012 [facility] Hyperlipid Diagnosis Active 2012-11-05 Memoria emia 04:11:47 l [place] Hyperlipid emia Active Diagnosis 11/05/2012 [facility] Acid Problem Active 2012-11-01 Memor ia reflux 20:14:36 l Acid Main reflux Active Problem 11/01/2012 [facility] 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 20:14:36 l Anal Main carcinoma Active Problem 11/01/2012 [facility] Diabetes Problem Active 2012-11-01 Mem oria mellitus 20:14:36 l Diabetes Phu n mellitus Active Problem 11/01/2012 [facility] Hyperchole Problem Active 2012-11-01 M emoria sterolemia 20:14:36 l [place] Hyperchole sterolemia Active Problem 11/01/2012 [facility] Hypertensi Problem Active 2012-11-01 M emoria on 20:14:36 l Main Hypertensi on Active Problem 3 [facility] Hypothyroi Problem Active 2012-11-01 M emoria dism 20:14:36 l Main Hypothyroi dism Active Problem 11/01/2012 [facility] Morbid Problem Active 2012-11-01 Memor ia obesity 20:14:36 l Morbid Main obesity Active Problem 11/01/2012 [facility] Sleep Problem Active 2012-11-01 Memor ia apnea 20:14:36 l Sleep [place] apnea Active Problem 11/01/2012 [facility] Allergies, Adverse Reactions, Alerts Allergy Allergy Status Severity Reaction(s) Onset Inactive Treating Comm ents Source Name Type Date Date Clinician NKFA NKFA Active Caio Quach Social History Social Habit Start Date Stop Date Quantity Comments Source Caffeine: 2012-09-01 00:00:00 2012-09-01 Memor ial Main 00:00:00 Medications Ordered Filled Start Stop Current [...] PO, l mg oral 19:40: BID, 60 [place] tablet 33 tab, Substituti on Allowed Lasix No Garth P 40 mg, 4 Memor ia 6-27 Buck mL, Route: l 15:32: IV, Drug [place] form: INJ, ONCE, Start date: 10/30/12 10:32:00, [...] Buck ml/hr, l 0.9% IV 12:42: ONCE, Main Start date: 10/29/12 7:42:00, 1,000 ml Sodium No Garth P IV, 1000 Tanner isaias Chloride 6-26 Buck ml/hr, l 0.9% IV 12:09: ONCE, Main 00 Start date: 10/29/12 7:09:00, 1,000 ml Sodium No Garth P IV, 1000 Tanner isaias Chloride 6-25 Buck ml/hr, l 0.9% IV 18:30: ONCE, Main Start date: 10/28/12 13:30:00, 1,000 ml Lovenox No Garth P 40 mg, 0.4 M emoria 6-25 Buck mL, Route: l 17:00: SUB-Q, Drug form: INJ, [id number], Start date: 10/28/12 12:00:00, Duration: 30 day, [...] Buck unit, 1 l 05:00: mL, Route: [place] 00 SUB-Q, Drug form: INJ, ONCE, Start [...] Buck mL, Route: l 19:24: IVP, Drug Main 00 form: INJ, Q6H, PRN Hypertensi on, [...] Buck 0.05 mL, l units/mL 19:20: Route: [place] human 00 SUB-Q, recombinant Drug form: SOLN, [...] Buck mL, Route: l 17:36: IVP, Drug [place] 00 form: INJ, Q8H, PRN Nausea & [...] 6-24 Buck 0.5 mL, l 17:36: Route: [place] 00 IVP, Drug form: INJ, Q5Min, PRN [...] 6-23 Buck Route: l Chloride 16:00: IVPB, Amin 0.9% IV 100 00 ONCALL, mL Start date: 10/26/12 11:00:00, Duration: 1 doses or times Amaryl 4 mg No 4 mg, 1 Mem oria oral tablet 6-10 tab, PO, l 16:31: Daily, 30 [place] 04 tab, Substituti on Allowed, TAB Zocor 20 mg No 20 mg, 1 Me moria oral tablet 6-10 tab, PO, l 16:30: Daily, 30 [place] 56 tab, Substituti on Allowed, Maintenanc e Synthroid No 75 Memoria 75 mcg 6-10 microgram, l (0.075 mg) 16:30: 1 tab, PO, H ermann oral tablet 47 Daily, 30 tab, Substituti on Allowed, TAB folic acid Yes Substituti M emoria 6-10 on Allowed l 16:30: Main 38 Toprol-XL No 100 mg, 1 Mem [...] Comments Source Heart Rate 2012-10-30 20:44:00 [facility] [place] Diastolic (mm Hg) 2012-10-30 20:44:00 Mem orial Main Respitory Rate 2012-10-30 20:44:00 Memcristela al [place] Systolic (mm Hg) 2012-10-30 20:44:00 Tanner nilton [place] Temperature Oral (F) 2012-10-30 20:44:00 98.0 F [facility] [place] Diastolic (mm Hg) 2012-10-30 16:31:00 Mem orial Main Systolic (mm Hg) 2012-10-30 16:31:00 Tanner rial [place] Respitory Rate 2012-10-30 16:31:00 Memori al Main Heart Rate 2012-10-30 16:31:00 Memorial Main Temperature Oral (F) 2012-10-30 16:31:00 98.6 F [facility] [place] Systolic (mm Hg) 2012-10-30 12:25:00 Tanner rial [place] Diastolic (mm Hg) 2012-10-30 12:25:00 Mem orial Main Heart Rate 2012-10-30 12:25:00 Memorial Main Respitory Rate 2012-10-30 12:25:00 Memori al Main Temperature Oral (F) 2012-10-30 12:25:00 98.1 F [facility] [place] Height 2012-10-13 16:20:00 154.94 cm [facility] [place] Weight 2012-10-13 16:20:00 Memorial Main Diastolic (mm Hg) 2012-09-01 15:00:00 Mem orial Main Systolic (mm Hg) 2012-09-01 15:00:00 Tanner rial Main Weight 2012-09-01 15:00:00 [facility] [place] Height 2012-09-01 15:00:00 [facility] [place] Procedures Procedure Date / Time Performing Clinician Source Performed Gastric bypass laparoscopic 2012-10-27 05:00:00 Óscar Jane [facility] Main Bariatric operative [facility] michael procedure Cholecystectomy [facility] [place] Hysterectomy [facility] Main Liver reconstruction [facility] Vascular surgery procedure Memor ial Main <sup>1</sup> Encounters Start End Encounter Admission Attending Care Care Encounter Source Date/Time Date/Time Type Type Clinicians Facility Department ID 2018-10-27 2018-10-27 Outpatient [id number] Memoria 06:28:00 06:28:00 l [place] [facility] l [facility] 2012-09-01 2012-09-01 Outpatient Comprehen Comprehensi 2 [id number] [facility]inic 10:00:00 10:00:00 sive ve [facility]or [facility] PA Care PA Results Test Description Test Time Test Comments Results Result Comments Source BEDSIDE GLUCOSE 2012-10-30 138 [facility] Main TESTING 16:34:00 CHEMISTRY 2012-10-30 14.4 Memorial Karen [...] = MCH) 31.4 pg 27.0-31.0 H Memorial IimnxbyIMKXMVCXUS7475-00-00 16:09:57349Idhemmhj HermannHEMATOLOGY 2012-10-30 16:09:0034.0[facility] LycctheTUKLKBBGOO5001-43-22 16:09:0092.4[facility]orial BxssgogOVPJPOKWYA4388-27-16 16:09:0032.1[facility] OvmzoibMSOBTXAHWG8749-64-38 16:09:0011.1[facility] SuqgdniORIGDVGARQ8313-87-96 16:09:0010.9[facility] [place] ABJKOKAWPO6240-84-71 16:09:0010.9[facility] EjvqhcwOGBIFPTOAX1499-09-55 16:09:00 3.47Memorial OgqtddhZGGHTWUYHR5636-07-74 16:09:00Slight *ABN*(10/30/2012 11:09:00)[facility]orial TbbikyuMZZEFFVKHF4008-57-54 16:09:000.6[facility] [place] IIEJHLIDPQ8812-49-63 16:09:00Slight *ABN*(10/30/2012 11:09:00)[facility] [place] TLVJKUZMKS7068-46-30 16:09:000.0[facility]orial RwktgmkYJNKNWZEWC2953-42-65 16:09:000.1 Memorial RavenziCYTMJTFPTP4784-58-66 16:09:000.4[facility] HermannHEMATOLOGY 2012-10-30 16:09:009.8[facility]orial IcoivgzDAXBDQAEIG4518-22-34 16:09:000.1[facility] SyahhrcXGLIECEKAI8502-37-10 16:09:005.2[facility]orial SvphchaLIZDNSNNAS3496-21-87 16:09:00Normal (10/30/2012 11:09:00)[facility]orial HavegflVCRJHBLDOY7712-70-57 16:09:0090.1[facility]orial BnukqyiSELMDSBXAT1384-67-37 16:09:003.7[facility] Main MDKNIRDUZJ8455-67-26 16:09:000.9[facility] HermannBEDSIDE GLUCOSE TESTING 2012-10-30 10:43:26826Gzhnqwln GkbeuteRZYRTFNPF1998-80-29 04:55:003.1[facility]orial XztepexBFXHUIEVL0332-28-81 04:55:001.1[facility] DqnpiguIVRTBDHHL8431-79-24 04:55:000.9[facility] CkkuhgrFCWSWYIYM2835-91-98 04:55:003.2[facility] [place] WBMLVAIDF6745-26-89 04:55:0069Mem[facility] OjyrrgjCAROHNPDP3891-66-73 04:55:0026 Memorial GbdrqxeGZZBDNWPO5035-23-36 04:55:0016[facility] HermannCHEMISTRY 2012-10-30 04:55:000.3[facility]orial VxqjmvxBVQRZAEFQ2403-94-60 04:55:0030[facility] SktovlnNWCVBRRTR9586-44-66 04:55:08510Ublibgsr TputaphQRYCWNEJW4164-23-52 04:55:0036[facility] XovnylxWUQAUTVYM0742-96-99 04:55:004.0[facility] Main XZLDSAOQD3632-61-37 04:55:64479Tdbhnauc BokvpnvNNGDCLUSG9698-06-79 04:55:001.8 Memorial ZsvfiemWQTKYANBM8822-90-09 04:55:45681Mckekdno HermannCHEMISTRY 2012-10-30 04:55:0024[facility]orial HlwpnueRHZXENJLX5140-21-24 04:55:002.8[facility]orial ZwzjkgzGFMAJNLLU3784-84-94 04:55:008.1[facility]orial TiyizmgCAIYOOXUQ9551-27-31 04:55:0020Memorial DrkxaolEUISTBKSG8333-46-45 04:55:006.0[facility] Main HWJYXKDDA2370-21-32 04:55:0012.0[facility] NycacvmMRDWVFNEVK4158-96-68 04:55:00 32.8[facility]orial LeuplugIDLUCNMSHR5289-52-09 04:55:0030.8[facility] HermannHEMATOLOGY 2012-10-30 04:55:0015.4[facility] YxbvmxzDMVWFKROXD7727-39-80 04:55:00 Test Item Value Reference Range Interpretation Comments MCH (test code = MCH) 29.9 pg 27.0-31.0 N Memorial IrnriicUZHAIIGUMA6801-76-45 04:55:0091.3[facility] HermannHEMATOLOGY 2012-10-30 04:55:79794Noerzmiz DolhlwdIZCLRBXVEN6598-49-64 04:55:0011.5[facility]orial GiqlpvwTDVGRJOLGS6456-33-04 04:55:003.37[facility] ZvkorjyDNPTRTPGKN5075-46-74 04:55:0010.0[facility] EgarwdzOHVEEBUBTI4217-29-49 04:55:0010.1[facility] Main ABPAYDRSNM7714-35-09 04:55:00Slight *ABN*(10/29/2012 23:55:00)[facility] ZUBFAWFUBH4193-66-94 04:55:00Slight *ABN*(10/29/2012 23:55:00)[facility] LKPIBXKCTM8936-56-18 04:55:00Slight *ABN*(10/29/2012 23:55:00)[facility] HALSGTFIXE1173-39-24 04:55:001.0[facility] CsobgwkAKVOKRLTFR6506-37-89 04:55:001.0 Memorial XfwtsblBKUHAWBNQW5466-77-63 04:55:000.0[facility] HermannHEMATOLOGY 2012-10-30 04:55:003.0[facility]orial FwxowlbYQZXZAFUDC5181-86-73 04:55:0013.0[facility] AzhagdgPFVCUGUJHP2472-74-18 04:55:000.3[facility]orial HkuacsfGDIGLZFLJH0468-08-39 04:55:000.1[facility] GulhwisJTTRANSZPW7016-57-06 04:55:000.1[facility] Main UMYQSNHACQ1344-65-20 04:55:009.5[facility]orial JkpsgajXHJIAYRZPY7580-84-97 04:55:00 82.0[facility] HermannBEDSIDE GLUCOSE KSKVFSN6572-94-53 02:29:96330Heltidbt ZcofnxrVHULVXIEI2875-60-12 20:55:2434Memorial HfgbsmqNELXKUMYR3177-71-06 20:55:241.6[facility]orial EqyrmulGZKONOMJPX1404-16-33 20:55:24 Test Item Value Reference Range Interpretation Comments PTT (test code = PTT) 21.5 s 22.9-35.8 L Memorial UwexjngNXKZBGPERP9242-84-67 20:55:0040[facility] HermannCHEMISTRY 2012-10-29 17:54:34358.5Memorial RyfywyfTEYTMLWYE0720-38-54 17:54:0011Memorial XywwnprFTZURYJEE5750-39-35 10:57:006.0[facility]orial SgyvmrlPIQZRKXRL0844-42-48 10:57:002.8[facility] AajvttmVPKUAHSOO3512-81-07 10:57:001.1[facility] Main JVKHXJOWB3152-09-99 10:57:0024[facility] LgcuaheKDWODCNPC7608-73-87 10:57:0033 Memorial UrvohbjUYYLSLHTZ9026-41-99 10:57:000.7[facility] HermannCHEMISTRY 2012-10-29 10:57:0076[facility] IzoufslNTLKBWBJL1084-57-84 10:57:003.2[facility] NoltczaIOEVNGGWL0545-70-84 10:57:0025Memorial YldgdtcLKDZZXNTM6038-57-37 10:57:85048Ngdkubct AuxvrshZXTDFPBOT8989-43-30 10:57:004.5[facility] Main YEGHGBEYR3634-07-68 10:57:13168Ylgcsmir RrhgtqjWFHYVWDAB1202-45-83 10:57:008.5 Memorial CkxkzefDTEMBPYYT1977-58-47 10:57:70690Kajqeizl HermannCHEMISTRY 2012-10-29 10:57:0031[facility] BbaacdcPPBUEAVCM1010-08-64 10:57:0017[facility] AgdsfkkTSVRQLOJH3332-23-28 10:57:0015.5[facility] SoeyyseOBTGPLLQKS3499-56-58 10:57:00Slight *ABN*(10/29/2012 05:57:00)[facility] OgkyuwfFTGXQVPURJ8818-39-67 10:57:000.0[facility] AanrythHJNVPEHRDG8995-49-92 10:57:00Normal (10/29/2012 05:57:00)[facility] CwiolqrMRAWPUJZPJ4064-40-34 10:57:000.1[facility] [place] RJZZAKMHUP4879-05-12 10:57:000.2[facility]orial QgexqgoXYYNQOQESI4998-86-96 10:57:00 93.2[facility]orial ChdonkaJTQXKJVJFU7492-19-46 10:57:003.2[facility] HermannHEMATOLOGY 2012-10-29 10:57:003.3[facility] YcasrthDUTJZEBTTV9928-33-09 10:57:000.0[facility] QnmrngsIUBBFCXRUE3569-79-26 10:57:0011.6[facility] AieobdhDARTHWJUTI1945-21-48 10:57:000.4[facility] OfgsgqtQBWNTBSSIM4428-32-57 10:57:000.4[facility] [place] QNOSJPEFMO7262-78-12 10:57:0012.4[facility] CyxzvbgYWNKIJSSKJ8099-98-97 10:57:00 91.9[facility] GtdmndwRYAZGAYTEL4709-52-00 10:57:0033.8[facility] HermannHEMATOLOGY 2012-10-29 10:57:00 Test Item Value Reference Range Interpretation Comments MCH (test code = MCH) 31.1 pg 27.0-31.0 H Memorial MqfviqvSUJKFZZPJP1817-91-51 10:57:0011.5[facility] HermannHEMATOLOGY 2012-10-29 10:57:003.68[facility] JzkskijVCTWNYEEXS8278-62-58 10:57:0011.3[facility] YvivrkyHNGVEKHBJE3939-71-10 10:57:0033.9[facility]orial XxnnbbmYHAXFJGHRW9029-40-14 10:57:0014.9[facility]orial WjstarrQBQUONNVJ9227-07-69 09:04:0017[facility] Main RJJTDOTCY3300-95-38 09:04:003.2[facility] ZngxkimXJXMYQETL6394-14-10 09:04:000.9 Memorial LcxdpwiTABHREUBI5492-42-95 09:04:002.9[facility] HermannCHEMISTRY 2012-10-28 09:04:006.1[facility] YpovcadWQGIWPQFW8330-49-68 09:04:0027[facility] TeyjkewDVVOENELB4286-60-99 09:04:000.6[facility] NcchnmzONKFUQEJV3525-88-10 09:04:0072Mem[facility] GpkzincBWUFIHQBD8379-75-87 09:04:0038[facility] Main CCJOUGLPGL6429-57-34 09:04:00Normal (10/28/2012 04:04:00)[facility] [place] PBAWURDVJO8087-40-95 09:04:00Normal (10/28/2012 04:04:00)[facility] EXLNBYZFDW6969-59-11 09:04:000.0[facility] HbydvydVFFJUOWMNL7999-50-89 09:04:000.0 [facility] HermannBLOOD BANK SVFPAFI7669-30-80 12:30:00Negative (10/27/2012 07:30:00)[facility] BalvcbcBVSHOVDVJ0452-84-11 16:55:63933Wzjnvech Main KPTCNJNCL9633-66-95 16:55:0011*ABN*(10/13/2012 11:55:00)[facility] Main AQXPCXMBAI9760-94-97 16:55:000.99[facility] YkftccaRRTPLEFEQU2942-18-94 16:55:00 Test Item Value Reference Range Interpretation Comments PTT (test code = PTT) 38.9 s 22.9-35.8 H Memorial PnlxdxtNODDBQYVVF3828-68-32 16:55:00 Test Item Value Reference Range Interpretation Comments PT (test code = PT) 13.3 s 12.0-14.7 N Memorial KxpspihTSMTQLLZBU9765-34-88 16:41:00Few /LPF *NA*(10/13/2012 11:41:00) Memorial JlypmpmRQRBISMCJV2737-97-58 16:41:00Performed *NA*(10/13/2012 11:41:00) Memorial GxjwezqZHSOILLDRG4435-39-46 16:41:00Occasional /HPF *NA*(10/13/2012 11:41:00)[facility] ArqdmsvATKAOWHTGM6424-18-61 16:41:001[facility] Main UPJULDZDOO2660-77-53 16:41:00Negative (10/13/2012 11:41:00)[facility] [place] NBKCNPFKMQ2560-81-05 16:41:00Negative (10/13/2012 11:41:00)[facility] Main IDCTGBASHL2672-44-61 16:41:00Few /LPF *NA*(10/13/2012 11:41:00)[facility] [place] IRUUTNZUOQ6859-74-29 16:41:00Negative (10/13/2012 11:41:00)[facility] Main QLGGGBEPEO3762-89-50 16:41:00Negative mg/dL *NA*(10/13/2012 11:41:00)[facility] BnxlmneBFFXZTBJAJ5794-58-54 16:41:00Negative mg/dL *NA*(10/13/2012 11:41:00) Memorial ZwjkryxAOVZUMKRRB3470-13-90 16:41:00Negative *NA*(10/13/2012 11:41:00) Memorial RqvsuorLPKSOVXQZR7368-06-12 16:41:0030 mg/dL *ABN*(10/13/2012 11:41:00) Memorial EdaljisAVSORZPLCS7035-86-19 16:41:005.5[facility] HermannURINALYSIS 2012-10-13 16:41:00Clear (10/13/2012 11:41:00)[facility] HermannURINALYSIS 2012-10-13 16:41:001.016[facility] QbnzvwwSGJGPMHAII2169-81-77 16:41:00Yellow *NA*(10/13/2012 11:41:00)Tyler Quach
[2020-03-21] MEDS ORDERED: Ringers Lactate 1,000 ML IV ONE (09:22)
[2020-03-21] MEDS: CEFAZOLIN/SWI 1gm 1 GM/10 ML SYR ONE ×2 (10:02→10:31)
[2020-03-21] MEDS ORDERED: LIDOCAINE 1% MPF 30 ML VIAL ONE (10:28)
[2020-03-21] MEDS ORDERED: LIDOCAINE 2% MPF 5 ML VIAL ONE (10:33)
[2020-03-21] MEDS ORDERED: propofoL 200 MG/20 ML VIAL IV ONE (10:33)
[2020-03-21] MEDS ORDERED: FENTANYL CITR 100 MCG/2 ML ONE (10:33)
[2020-03-21] MEDS ORDERED: ONDANSETRON 4 MG/2 ML VIAL ONE (10:34)
[2020-03-21] MEDS ORDERED: GLYCOPYRROLATE 0.2 MG/ML SYR ONE (11:05)
[2020-03-21] MEDS ORDERED: EPHEDRINE SULF 50 MG/ML VIAL ONE (11:06)
[2020-03-21 12:48] VITALS: BP 131/56; TEMP 97
--- NOTE | 2020-03-21 12:53 | OP ---
Date of Procedure: 03/21/2020 Surgeon: Vini Berman MD Patient Services Rep: LEONOR Loaiza. Preoperative Diagnosis: Right leg mass. 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 Procedure Performed: Wide excision of right leg mass, 10 x 4 cm with layered closure. Estimated Blood Loss: Minimal. Estimated Blood Loss: Minimal. Specimen: Right leg mass. Findings: Squamous cell carcinoma. The major portion was free on the margin; however, when a small area was close to the 3 o'clock position of the squamous carcinoma in situ. That was closed and ther e was tension on the wound after it was initially excised, I opted not to re-excise this area as it i s squamous cell in situ and we can monitor it clinically. Anesthesia: General. Complications: None. Disposition: The patient tolerated the procedure in stable condition, taken to Recovery in good gene ral condition. Procedure In Detail: The patient was brought to the OR and placed in supine position. General anest hesia begun. The patient was prepped and draped in the usual sterile fashion. Marcaine 0.5% was inf iltrated locally and then a 15-blade was used to make a 10 x 4 cm incision to excise this 3 cm raised red pleomorphic mass. Subcutaneous tissues were divided. The entire mass was excised, labeled appr opriately, and sent to the frozen section which revealed squamous cell carcinoma with invasive compon ent. Margins were free and in situ component, which was close inferior margin and therefore, I opted not to re-excise this area because there was quite a bit tension and the patient did not have much s kin that would require major flap surgery and at this point, for in situ, I do not feel that was an a ppropriate surgical intervention at this time as this can be managed much more simply. Subsequently, wound was irrigated. Bleeding was controlled with cautery. Flaps created and then a 2-0 chromic wa s used to approximate the subcutaneous tissue and 3-0 nylon was used to close skin. Sterile dressing was applied. The patient was awakened and taken to Recovery in good general condition. Discharge Note: The patient will go to Day Surgery and home when stable. Disposition: Home. Condition: Stable. Discharge Instructions: Resume home medications and diet. Activity as tolerated. No heavy lifting. Remove outer dressing in 2 days. Shower. Keep wound clean and dry. Gauze, Kerlix and Adeel to the wound daily. Follow up in my office in 2 weeks. Call for appointment. Tylenol No.3 one tablet p.o. q.4 p.r.n. pain and Keflex 500 mg p.o. q.6. /MODL Voice ID: [id number] Report ID: [id number]
[2020-03-21 13:11] VITALS: O2SAT 98
== END 2020-03-21 13:04 | disposition home health service (06) ==
LOC: PRE 08:27
PROVIDERS: ATTEND Surgery
PROC: 0HBKXZZ Excision of Right Lower Leg Skin, External Approach (ICD-10-PCS; principal; 2020-03-21 10:30)
DX: C44.722 Squamous cell carcinoma of skin of right lower limb, including hip (principal); Z20.828 Contact with and (suspected) exposure to other viral communicable diseases; I10 Essential (primary) hypertension; Z85.05 Personal history of malignant neoplasm of liver; Z85.828 Personal history of other malignant neoplasm of skin
CPT/HCPCS: 88305; 88331; 88332; J0690; J2405; J2704; J3010; J7120; U0002

== ENCOUNTER 2020-11-30 09:22 | Emergency (ER) | payer OTHER ==
--- OUTSIDE RECORDS SUMMARY | 2020-11-30 09:54 | XMS REPORT | Continuity of Care Document ---
:1950 Author Organization [facility] t Address [address] [place] [address] [place] [address] Care Team Providers Name Role Phone Unavailable Unavailable Unavailable Problems Condition Condition Condition Status Onset Resolution Last Treating Co mments Source Name Details Category Date Date Treatment Clinician Date MOBID Diagnosis Active 2012-10-27 Mem oria OBESITY 5-16 13:28:00 l MOBID 00:00: [place] OBESITY 00 Active 09/18/2012 [facility] [place] Morbid Diagnosis Active 2012-11-05 Mem oria obesity 04:11:47 l Morbid Main obesity Active Diagnosis 11/05/2012 [facility] Hypothyroi Problem Active 2012-11-05 M emoria dism 04:11:47 l (acquired) Phu n Hypothyroi dism (acquired) Active Problem 11/05/2012 [facility] Hypertensi Diagnosis Active 2012-11-05 Memoria on 04:11:47 l [place] Hypertensi on Active Diagnosis 11/05/2012 [facility] Hyperlipid Diagnosis Active 2012-11-05 Memoria emia 04:11:47 l [place] Hyperlipid emia Active Diagnosis 11/05/2012 [facility] Acid Problem Active 2012-11-01 Memor ia reflux 20:14:36 l Acid Main reflux Active Problem 11/01/2012 [facility] [place] 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 20:14:36 l Anal Main carcinoma Active Problem 11/01/2012 [facility] [place] Diabetes Problem Active 2012-11-01 Mem oria mellitus 20:14:36 l Diabetes Phu n mellitus Active Problem 11/01/2012 [facility] [place] Hyperchole Problem Active 2012-11-01 M emoria sterolemia 20:14:36 l Main Hyperchole sterolemia Active Problem 11/01/2012 [facility] [place] Hypertensi Problem Active 2012-11-01 M emoria on 20:14:36 l Main Hypertensi on Active Problem 3 [facility] [place] Hypothyroi Problem Active 2012-11-01 M emoria dism 20:14:36 l Main Hypothyroi dism Active Problem 11/01/2012 [facility] [place] Morbid Problem Active 2012-11-01 Memor ia obesity 20:14:36 l Morbid Main obesity Active Problem 11/01/2012 [facility] [place] Sleep Problem Active 2012-11-01 Memor ia apnea 20:14:36 l Sleep Main apnea Active Problem 11/01/2012 [facility] [place] Chemothera Problem Resolve 2012-11-01 Memoria py d 20:14:36 l [place] Chemothera py Resolved Problem 11/01/2012 [facility] [place] Liver Problem Resolve 2012-11-01 Tanner isaias carcinoma d 20:14:36 l Liver [place] carcinoma Resolved Problem 11/01/2012 [facility] [place] Radiation Problem Resolve 2012-11-01 M emoria d 20:14:36 l Main Radiation Resolved Problem 11/01/2012 [facility] [place] PREOP Diagnosis Active 2012-11-05 Mem oria CARDIOVSCL 04:11:47 l R EXAM PREOP [place] CARDIOVSCL R EXAM Active Diagnosis 11/05/2012 [facility] Allergies, Adverse Reactions, Alerts This patient has no known allergies or adverse reactions. Social History Social Habit Start Date Stop Date Quantity Comments Source Caffeine: 2012-09-01 00:00:00 2012-09-01 Felixor raginil Main 00:00:00 Medications Ordered Filled Start Stop Current Ordering Indication Dosage Frequency Signature Comments Components Source Medication Medication Date Date Medication? Clinician (SIG) Name Name Nasonex Yes Salah El 2 spray(s) Memoria -03 Hafi l 04:11: Main 47 Benicar Yes Salah El 1 tab(s) Me moria 7-03 Hafi l 04:11: Main 47 Synthroid Yes Salah El 1 tab(s) Memoria 7-03 Hafi l 04:11: Main 47 Toprol XL Yes Salah El 1 tab(s) Memoria 7-03 Hafi l 04:11: Main 47 Zocor Yes Salah El 1 tab(s) Tanner isaias 7-03 Hafi l 04:11: [place] 47 folic acid Yes Salah El 1 tab(s) Memoria 7-03 Hafi l 04:11: Main 47 Amaryl Yes Salah El 1 tab(s) Mem oria 7-03 Hafi l 04:11: Main Gomez Lortab 500 Yes Garth P 15 ml, PO, Memoria mg-7.5 6-27 Buck Q4H, PRN, l mg/15 mL 19:41: 300 mL, Phu n oral elixir 44 for pain, Substituti on Allowed, Maintenanc e, ELIX Lovenox 40 Yes Garth P 40 mg, Me moria mg/0.4 mL 6-27 Buck SUB-Q, l subcutaneou 19:41: Q12H, 20 He rmann s solution 26 syr, Substituti on Allowed, SOLN Metoprolol Yes Garth P 50 mg, 1 Memoria Tartrate 50 6-27 Buck tab, PO, l mg oral 19:40: BID, 60 [place] tablet 33 tab, Substituti on Allowed Lasix No Garth P 40 mg, 4 Memor ia 6-27 Buck mL, Route: l 15:32: IV, Drug [place] form: INJ, ONCE, Start date: 10/30/12 10:32:00, Stop date: 10/30/12 10:32:00 Sodium No Garth P 500 mL, Memor ia Chloride 6-26 Buck Rate: l 0.9% IV 500 17:49: bolus x1, H ermann mL 00 Route: IV, Dosing Weight 173.182 kg, Total Volume: 500, Start date: 10/29/12 12:49:00, Duration: 1 doses or times, Stop date: 10/29/12 14:48:00 Lopressor No Garth P 5 mg, 5 Me moria 6-26 Buck mL, Route: l 17:49: IV, Drug [place] form: INJ, Q6H, Start date: 10/29/12 12:49:00, Duration: 30 day, Stop date: 11/28/12 12:00:00 Sodium No Garth P IV, 1000 Tanner isaias Chloride 6-26 Buck ml/hr, l 0.9% IV 12:42: ONCE, Start date: 10/29/12 7:42:00, 1,000 ml Sodium 2012- No Garth P IV, 1000 Tanner isaias Chloride 6-26 Buck ml/hr, l 0.9% IV 12:09: ONCE, Start date: 10/29/12 7:09:00, 1,000 ml Sodium 2012- No Garth P IV, 1000 Tanner isaias Chloride 6-25 Buck ml/hr, l 0.9% IV 18:30: ONCE, Start date: 10/28/12 13:30:00, 1,000 ml Lovenox No Garth P 40 mg, 0.4 M emoria 6-25 Buck mL, Route: l 17:00: SUB-Q, Drug form: INJ, [id number], Start date: 10/28/12 12:00:00, Duration: 30 day, [...] Shant ml/hr, l Injection 12:09: Primomo ONCE, IV Start date: 10/28/12 7:09:00, 1,000 ml heparin No Garth P 5,000 Memori a 6-25 Buck unit, 1 l 05:00: mL, Route: SUB-Q, Drug form: INJ, ONCE, Start date: [...] Buck mL, Route: l 19:24: IM, Drug [place] form: INJ, Q4H, PRN Nausea, Start date: 10/27/12 14:24:00, Duration: 30 day, Stop date: 11/26/12 14:23:00 Lactated 2012-0 No Garth P 1,000 mL, M emoria Ringers 6-24 Buck Rate: 80 l Injection 19:23: ml/hr, Phu n IV 1,000 mL 00 Infuse over: 12.5 hr, Route: IV, Dosing Weight 173.182 kg, Total Volume: 1,000, Start date: 10/27/12 14:23:00, Stop date: 11/26/12 14:22:00 insulin 2012-0 No Garth P 5 unit, Tanner isaias regular 100 6-24 Buck 0.05 mL, l units/mL 19:20: Route: Main human 00 SUB-Q, recombinant Drug form: SOLN, [...] Buck mL, Route: l 17:36: IVP, Drug form: INJ, Q6H, PRN Itching, Start date: 10/27/12 12:36:00, Duration: 30 day, Stop date: 11/26/12 12:35:00 naloxone No Garth P 0.2 mg, Mem oria 6-24 Buck 0.5 mL, l 17:36: Route: [place] 00 IVP, Drug form: INJ, Q5Min, PRN Narcotic Reversal, Start date: 10/27/12 12:36:00, Duration: 30 day, Stop date: 11/26/12 12:35:00 morphine No Garth P IV, Start M emoria Sulfate 30 6-24 Buck date: l mg 17:35: 10/27/12 [place] 00 12:35:00, Duration: 30, 30 ml, 173.182 ondansetron No Hosni Matilda 4 mg, 2 Memoria 6-24 Bassili mL, Route: l 15:28: IVP, Drug Main 00 form: INJ, ONCE, Dosing Weight 173.182, kg, PRN Nausea & Vomiting, Start date: 10/27/12 10:28:00 flumazenil No Hosni Matilda 0.2 mg, 2 Memoria 6-24 Bassili mL, Route: l 15:28: IVP, Drug form: INJ, PRN, Dosing Weight 173.182, kg, PRN Benzodiaze pine Reversal, Initial dose, Start date: 10/27/12 10:28:00, Duration: 30 day, Stop date: 11/26/12 10:27:00 naloxone 2012- No Hosni Matilda 0.04 mg, Memoria 6-24 Bassili 0.1 mL, l 15:28: Route: Main IVP, Drug form: INJ, Q2MIN, Dosing Weight [...] 6-24 Bassili 0.25 mL, l 15:28: Route: Main 00 IVP, Drug form: INJ, Q30Min, Dosing Weight 173.182, kg, PRN Other -See Comment, For shivering, Start date: 10/27/12 10:28:00, Duration: 2 doses or times, Stop date: Limited # of times Lactated 2012- No Hosni Matilda 1,000 mL, Memoria Ringers 6-24 Bassili Rate: 25 l Injection 12:11: ml/hr, Phu n IV 1,000 mL 00 Infuse over: 40 hr, Route: IV, Dosing Weight 173.182 kg, Total Volume: 1,000, Start date: 10/27/12 7:11:00, Duration: 30 day, Stop date: 11/26/12 7:10:00 Invanz + 2012- No Garth P 1 gm, Memor ia Sodium 6-23 Buck Route: l Chloride 16:00: IVPB, [place] 0.9% IV 100 00 ONCALL, mL Start date: 10/26/12 11:00:00, Duration: 1 doses or times Amaryl 4 mg No 4 mg, 1 Mem oria oral tablet 6-10 tab, PO, l 16:31: Daily, 30 Main 04 tab, Substituti on Allowed, TAB Zocor 20 mg No 20 mg, 1 Me moria oral tablet 6-10 tab, PO, l 16:30: Daily, 30 [place] 56 tab, Substituti on Allowed, Maintenanc e Synthroid No 75 Memoria 75 mcg 6-10 microgram, l (0.075 mg) 16:30: 1 tab, PO, H ermann oral tablet 47 Daily, 30 tab, Substituti on Allowed, TAB folic acid Yes Substituti M emoria 6-10 on Allowed l 16:30: [place] 38 Toprol-XL No 100 mg, 1 Mem [...] Comments Source Heart Rate 2012-10-30 20:44:00 [facility] [place] Diastolic (mm Hg) 2012-10-30 20:44:00 Mem orial [place] Respitory Rate 2012-10-30 20:44:00 Peri al [place] Systolic (mm Hg) 2012-10-30 20:44:00 Tanner rial [place] Temperature Oral (F) 2012-10-30 20:44:00 98.0 F [facility] Main Diastolic (mm Hg) 2012-10-30 16:31:00 Mem orial Main Systolic (mm Hg) 2012-10-30 16:31:00 Tanner rial [place] Respitory Rate 2012-10-30 16:31:00 Felixori al Main Heart Rate 2012-10-30 16:31:00 [facility] Main Temperature Oral (F) 2012-10-30 16:31:00 98.6 F [facility] Main Systolic (mm Hg) 2012-10-30 12:25:00 Tanner rial [place] Diastolic (mm Hg) 2012-10-30 12:25:00 Mem orial Main Heart Rate 2012-10-30 12:25:00 [facility] [place] Respitory Rate 2012-10-30 12:25:00 Memori al Main Temperature Oral (F) 2012-10-30 12:25:00 98.1 F [facility] Main Height 2012-10-13 16:20:00 154.94 cm [facility] [place] Weight 2012-10-13 16:20:00 [facility] [place] Diastolic (mm Hg) 2012-09-01 15:00:00 Mem orial Main Systolic (mm Hg) 2012-09-01 15:00:00 Tanner rial [place] Weight 2012-09-01 15:00:00 [facility] [place] Height 2012-09-01 15:00:00 [facility] Main Procedures Procedure Date / Time Performing Clinician Source Performed Gastric bypass laparoscopic 2012-10-27 05:00:00 Óscar Jane [facility] Main Bariatric operative [facility] michael procedure Cholecystectomy [facility] [place] [facility] Vascular surgery procedure Memor ial Main <sup>1</sup> Encounters Start End Encounter Admission Attending Care Care Encounter Source Date/Time Date/Time Type Type Clinicians Facility Department ID 2018-10-27 2018-10-27 Outpatient [facility] [id number] Memoria 06:28:00 06:28:00 l [place] Memoria l [facility] 2012-09-01 2012-09-01 Outpatient Comprehen Comprehensi 2 [id number] 10:00:00 10:00:00 [facility] Care PA Results Test Description Test Time Test Comments Results Result Comments Source BEDSIDE GLUCOSE 2012-10-30 138 [facility] Main TESTING 16:34:00 HEMATOLOGY 2012-10-30 0.9 Memorial Karen nn 16:09:00 CHEMISTRY 2012-10-30 14.4 Memorial Karen nn 16:09:00 [...] = MCH) 31.4 pg 27.0-31.0 H Memorial KlyykjtMQDGVJVLEY8691-96-79 16:09:31366Tkonwzil HermannHEMATOLOGY 2012-10-30 16:09:0034.0[facility] EitkbjlJRPXWMNSYR0022-86-82 16:09:0092.4[facility] YemwlsfCBPWHUCOPR3615-50-31 16:09:0032.1[facility] ErpvoixAESJROJCGG0850-67-77 16:09:0011.1[facility] KaqbgsgSBQSLRYDBX4588-37-38 16:09:0010.9[facility] Main VFKNQDKVBI6595-68-40 16:09:0010.9[facility] InjzyvwBRCLZDGYHV1388-06-44 16:09:00 3.47[facility]orial FxflsnzRIHIIZKJHA4807-80-54 16:09:00Slight *ABN*(10/30/2012 11:09:00)[facility] SgwusdeXHTKKOVTWX9809-42-39 16:09:000.6[facility] Main VSXUJTXUQX0720-58-65 16:09:00Slight *ABN*(10/30/2012 11:09:00)[facility] Main WUUVUTKWTE2027-62-31 16:09:000.0[facility] CwcyznsGBZMSLAVGY4387-34-40 16:09:000.1 Memorial KhkygqvNKKLYZAYSO7556-07-97 16:09:000.4[facility] HermannHEMATOLOGY 2012-10-30 16:09:009.8[facility] ZpdjodjMIEHXJKNHY4906-06-61 16:09:000.1[facility] SmcudwzGUJCIKPZTX2230-24-75 16:09:005.2[facility] LufavpaORZDDWOCTO9490-15-37 16:09:00Normal (10/30/2012 11:09:00)[facility] IxvoweoYEIYPBCJVW4931-98-94 16:09:0090.1[facility] JaqcjqxDTOYQOZFAC3364-92-32 16:09:003.7[facility] [place] BEDSIDE GLUCOSE JGBWYPN8133-34-40 10:43:05734Xqxesiex CiesuwvVOVBWVTUC7433-41-65 04:55:003.1[facility]orial LjsgqjzQLFHDXOOQ8360-92-39 04:55:001.1[facility] [place] AEFQGJOJI5193-39-12 04:55:000.9[facility] InzjacpDQVXGYTQQ5951-65-08 04:55:003.2 Memorial ScfxijfCPIPWRNHX4282-61-35 04:55:0069[facility] HermannCHEMISTRY 2012-10-30 04:55:0026[facility] RqigwavHVEYWYJDR7369-43-82 04:55:0016[facility] EjbveibKJPFRLVDP0416-22-92 04:55:000.3[facility] VibmtdcMKWQDWUZD3335-32-18 04:55:0030[facility] XzmdxiaRSTBKFUUA3827-27-20 04:55:07517Hoqbyygo Main WRPSIESXA1154-78-75 04:55:0036[facility] IojphzbAIMZTMLPN9840-18-91 04:55:004.0 Memorial PkqnqvcWKIJYCGXU2654-06-19 04:55:05247Fyzwxemx HermannCHEMISTRY 2012-10-30 04:55:001.8[facility] GbhxvmgSZNIFSSUH2727-51-64 04:55:00084Ohooafqo AvuvfcfXYSOFUUAB2972-90-10 04:55:0024[facility] HqtpkztHHSLGJIBW5926-17-07 04:55:002.8[facility] HorhgnmYQZPZZFUM0258-94-96 04:55:008.1[facility] Main ZCLQLSOCT1661-92-05 04:55:0020[facility] DgqdhuhEQTGNEQHO9042-28-55 04:55:006.0 Memorial OxhbfohDLSIHDAGG1414-25-73 04:55:0012.0[facility] HermannHEMATOLOGY 2012-10-30 04:55:0032.8[facility] RlcdimcPBITDXNOCE1688-73-73 04:55:0030.8[facility] EcqsezxHWHVITGJLA5113-28-49 04:55:0015.4[facility] VtyejatLLLWYOLSXH1598-12-28 04:55:00 Test Item Value Reference Range Interpretation Comments MCH (test code = MCH) 29.9 pg 27.0-31.0 N Memorial FfvcevcOZQGXEMBDA9311-81-58 04:55:0091.3[facility] HermannHEMATOLOGY 2012-10-30 04:55:07538Iiwkymcb ZopfekiECHHXOCZXM0644-96-54 04:55:0011.5[facility] QazacilWWFGBDGPNG8928-54-78 04:55:003.37[facility] GtdoisvUBFTUAQWSZ4735-01-05 04:55:0010.0[facility] UlamcpwVKTIAARDAQ9617-62-52 04:55:0010.1[facility] Main NPCXPBFXHF4039-05-06 04:55:00Slight *ABN*(10/29/2012 23:55:00)[facility] Main ZUQDWJFTII6942-33-48 04:55:00Slight *ABN*(10/29/2012 23:55:00)[facility] [place] ERDKQXQZAA1399-21-98 04:55:00Slight *ABN*(10/29/2012 23:55:00)[facility] [place] KBFAHGWEGD4160-67-07 04:55:001.0[facility] UjuxpecNAVXCXVLVG1475-59-22 04:55:001.0 Memorial RrbpntgLUBHJRIXZG6804-82-13 04:55:000.0[facility] HermannHEMATOLOGY 2012-10-30 04:55:003.0[facility] XihzsxcVSJXNKLKYX9202-44-12 04:55:0013.0[facility] DwamwjmSFIQISSGIU1043-63-63 04:55:000.3[facility] AkrtmipKSCEVCTVPK7477-28-43 04:55:000.1[facility] NhtvsfgAAMQWHVDOI1974-06-66 04:55:000.1[facility] Main PFCOPHHHAC6927-01-07 04:55:009.5[facility] EnscrrkURWWDNXNBZ0582-74-31 04:55:00 82.0[facility] HermannBEDSIDE GLUCOSE VKSYFAB8683-36-20 02:29:55788Gronqhhe OqrcujpBCJENYFJN7580-90-64 20:55:2434[facility] KwdebvkZXSFHMSAU6672-40-42 20:55:241.6[facility] SqefcbxEDAEAOZCKB8649-94-07 20:55:24 Test Item Value Reference Range Interpretation Comments PTT (test code = PTT) 21.5 s 22.9-35.8 L Memorial XjvpalhTPWGMXMEBK6911-66-70 20:55:0040[facility] HermannCHEMISTRY 2012-10-29 17:54:13644.5[facility] OfysbbqUOIINDSDU7451-74-55 17:54:0011[facility] CojxbojMBHFNSXGB1924-97-17 10:57:000.7[facility] IdruevpYPUUPBYYF5845-94-69 10:57:0076[facility] OmelbgjXTEKEDZMN7380-58-60 10:57:003.2[facility] Main YLXZHYRHS0915-47-05 10:57:0025[facility] LaigvwqLEKEVDRGS7985-27-35 10:57:91119 Memorial ZkmkvfyXGAULWMMU1228-29-83 10:57:004.5[facility] HermannCHEMISTRY 2012-10-29 10:57:84954Oyylzvqb IuagqfnAENJSZDJQ0780-46-76 10:57:008.5[facility]orial MfwqzlnTWLZQWSVH4474-57-53 10:57:23123Isjqbcqt VveihxiVRDKJBBHA4223-47-74 10:57:0031[facility] KbjsdixWFXFQKWMY7446-51-30 10:57:0017[facility] [place] LRLQLRHOA6575-82-48 10:57:0015.5[facility] XgvnehsMHTHRSNATW2215-80-36 10:57:00 Slight *ABN*(10/29/2012 05:57:00)[facility] JsqxarrTRXXPMFDJY1425-23-14 10:57:00 0.0[facility] IfawkynFMFHRQZKTI3105-60-90 10:57:00Normal (10/29/2012 05:57:00) Memorial RbkppodYKTXDDTLIJ9175-52-48 10:57:000.1[facility] HermannHEMATOLOGY 2012-10-29 10:57:000.2[facility] RscjyfhBUDCGCFUDH7159-96-67 10:57:0093.2[facility] UthrrxlNNMTMZHDHI8865-10-55 10:57:003.2[facility] UciprztYMOWDZJESA2784-02-40 10:57:003.3[facility] PexymtzRPSSIHOUWE9054-67-53 10:57:000.0[facility] [place] HZRGLIPKFA0577-98-22 10:57:0011.6[facility] IaeicvkNXRIUNRTJX1438-08-73 10:57:00 0.4[facility] VhkthvnPBSPFKSIAC4959-23-71 10:57:000.4[facility] HermannHEMATOLOGY 2012-10-29 10:57:0012.4[facility] UxojnsqHWTPOQPQND7242-01-97 10:57:0091.9[facility] OktpopmBTECLQLEPW4416-04-03 10:57:0033.8[facility] CmblnbuSUFBXJOVYK8803-56-22 10:57:00 Test Item Value Reference Range Interpretation Comments MCH (test code = MCH) 31.1 pg 27.0-31.0 H Memorial McsqyzxLUXFYKBDEB2008-29-85 10:57:0011.5[facility] HermannHEMATOLOGY 2012-10-29 10:57:003.68[facility] SafguzkEXSBJNBIBA4076-80-12 10:57:0011.3[facility] YgxkxotIIRFBPIHWF3324-42-50 10:57:0033.9[facility] JccbhmqRLIZYEKESL6428-58-44 10:57:0014.9[facility] JumqxktVBYGNYLCZ3360-55-82 10:57:006.0[facility] Main FUHSODVOX2849-74-66 10:57:002.8[facility] HhxvtwlZPBIREQOF9718-16-65 10:57:001.1 [facility] BwxonsgEROHSCWLH0421-02-79 10:57:0024[facility] HermannCHEMISTRY 2012-10-29 10:57:0033[facility] RiftcvmJCZBZTCEU2108-18-54 09:04:0017[facility] XpjahojPLJNIADHQ5905-51-34 09:04:003.2[facility] QafwbxrDJBKCXWRT4904-12-84 09:04:000.9[facility] TschxuoZRESTJXHM8901-65-24 09:04:002.9[facility] Main WGHSGVWHH5012-15-23 09:04:006.1[facility] RdjtyoqGFKIUNLTC0044-22-31 09:04:[address]xlwrbPUMBEEUCK2595-06-78 09:04:000.6[facility] HermannCHEMISTRY 2012-10-28 09:04:0072[facility] UuqnhnoWBOBDTSVS3025-74-46 09:04:0038[facility] WlpehznHMWJCGHJJN9311-66-63 09:04:00Normal (10/28/2012 04:04:00)[facility] TGDXTFEMZF1316-17-30 09:04:00Normal (10/28/2012 04:04:00)[facility] UVWSXZZLHA0278-78-03 09:04:000.0[facility] UoapfxfRVLSPCAUBG7919-87-29 09:04:000.0 [facility] AKMRKXI7324[facility]-36 12:30:00Negative (10/27/2012 07:30:00)[facility] TzcgaerGQXXKBZMP3065-13-28 16:55:96415Upprapxf Main KPRQAHPQZ4070-88-71 16:55:0011*ABN*(10/13/2012 11:55:00)[facility] HQPXNASOZT8464-48-51 16:55:000.99[facility] WipmntyRLKXHZBRGQ1435-38-91 16:55:00 Test Item Value Reference Range Interpretation Comments PTT (test code = PTT) 38.9 s 22.9-35.8 H Memorial EnwzrgxGWMVIDRUFC5182-55-29 16:55:00 Test Item Value Reference Range Interpretation Comments PT (test code = PT) 13.3 s 12.0-14.7 N Memorial EvrctaoWSFLMPJQSW6478-55-65 16:41:00Few /LPF *NA*(10/13/2012 11:41:00) [facility] IognoibLVSRANEFHQ5606-66-13 16:41:00Performed *NA*(10/13/2012 11:41:00) Memorial CbrvlbjJPCRZFRJDE3145-89-46 16:41:00Occasional /HPF *NA*(10/13/2012 11:41:00)[facility] ZokihmlMPNRLWMZMN1478-45-82 16:41:001[facility] Main GWTUMPZQDY9192-03-37 16:41:00Negative (10/13/2012 11:41:00)[facility] [place] LPPOBDJDRB9598-70-16 16:41:00Negative (10/13/2012 11:41:00)[facility] EUZWNXVDME6905-00-68 16:41:00Few /LPF *NA*(10/13/2012 11:41:00)[facility] RIDEJARYUC3822-21-18 16:41:00Negative (10/13/2012 11:41:00)[facility] YNHDQNKXXB9762-97-74 16:41:00Negative mg/dL *NA*(10/13/2012 11:41:00)[facility] UyzwixrSUSOJLAHTP2261-00-93 16:41:00Negative mg/dL *NA*(10/13/2012 11:41:00) Memorial VxylhxvYXSPHPTLZF1716-90-94 16:41:00Negative *NA*(10/13/2012 11:41:00) [facility] IbbbwkuWPZEWTYTGB2897-59-30 16:41:0030 mg/dL *ABN*(10/13/2012 11:41:00) [facility] KgkuvkxUVYEFYXUMZ5813-81-33 16:41:005.5[facility] HermannURINALYSIS 2012-10-13 16:41:00Clear (10/13/2012 11:41:00)[facility] HermannURINALYSIS 2012-10-13 16:41:001.016[facility] DqmpdqnRIMXPKRYIR5517-19-40 16:41:00Yellow *NA*(10/13/2012 11:41:00)[facility] [place]
--- NOTE | 2020-11-30 10:35 | RAD REPORT ---
EXAM DESCRIPTION: US - Extremity Venous Uni Ltd - 11/30/2020 10:21 am CLINICAL HISTORY: Pain;Swelling Leg swelling and edema. COMPARISON: No comparisons FINDINGS: Left lower extremity venous system was interrogated with Doppler technique. Normal flow, c ompressibility and augmentation was noted. There is no DVT present. IMPRESSION: No evidence of left lower extremity deep venous thrombosis.
[2020-11-30] MEDS ORDERED: HYDROCODONE/APAP 5/325 MG TAB ONE (11:26)
--- NOTE | 2020-11-30 12:14 | ER ---
Nurse's Notes [facility] Name: Lynnette Marinelli Age: 69 yrs Sex: Female : 1950 Arrival Date: 11/30/2020 Time: 09:31 Bed 3 Private MD: Melina French F Diagnosis: Pain in left ankle and joints of left foot Presentation: 11/30 09:50 Chief complaint: Patient states: Left ankle pain and swelling starting yesterday kg morning and increasingly gotten worse, now unable to walk. Coronavirus screen: Client denies travel out of the [place] in the last 14 days. At this time, unable to obtain information related to travel outside the [place] At this time, the client does not indicate any symptoms associated with coronavirus-19. Ebola Screen: Patient negative for fever greater than or equal to 101.5 degrees Fahrenheit, and additional compatible Ebola Virus Disease symptoms Patient denies exposure to infectious person. Ebola Screen: Patient denies travel to an Ebola-affected area in the 21 days before illness onset. Initial Sepsis Screen: Does the patient meet any 2 criteria? No. Patient's initial sepsis screen is negative. Does the patient have a suspected source of infection? No. Patient's initial sepsis screen is negative. Risk Assessment: Do you want to hurt yourself or someone else? Patient reports no desire to harm self or others. Onset of symptoms was November 29, 2020. 09:50 Method Of Arrival: Wheelchair kg 09:50 Acuity: [place] 3 kg Triage Assessment: 09:56 General: Appears in no apparent distress. Behavior is calm, cooperative, appropriate kg for age, quiet. Pain: Complains of pain in left lateral ankle, left Achilles, left medial ankle and anterior aspect of left ankle Pain radiates to left foot Pain currently is 10 out of 10 on a pain scale. at worst was 10 out of 10 on a pain scale. level that patient reports is acceptable is 5 out of 10 on a pain scale. Quality of pain is described as sharp, stabbing, Pain began 1 day ago. Is continuous. 09:56 Musculoskeletal: Swelling present in Left ankle. kg Historical: - Allergies: 09:53 NKA; kg - Home Meds: 09:56 amlodipine 10 mg tab 1 tab once daily [Active]; folic acid 1 mg Oral tab 1 tab once kg daily [Active]; hydrochlorothiazide 12.5 mg Oral tab 1 tab once daily [Active]; Lexapro 20 mg Oral tab 1 tab once daily [Active]; lisinopril 40 mg Oral tab 1 tab once daily [Active]; Synthroid 25 mcg Oral tab 1 tab once daily [Active]; - PMHx: 09:53 liver cancer; Hypothyroidism; Hypertension; Depression; Anal Cancer; kg - PSHx: 09:53 Port implantation and removal; Liver resection; Gastric bypass; skin removal surgery; kg skin cancer removed; hystrectomy; Cholecystectomy; - Immunization history:: Adult Immunizations not up to date, Client reports receiving the 2nd dose of the Covid vaccine. - Social history:: Smoking status: Patient/guardian denies using tobacco, but has a distant history of tobacco abuse, Patient uses alcohol, weekly. Screenin:00 Abuse screen: Denies threats or abuse. Denies injuries from another. Nutritional kg screening: No deficits noted. Tuberculosis screening: No symptoms or risk factors identified. Fall Risk None identified. No fall in past 12 months (0 pts). No secondary diagnosis (0 pts). No IV (0 pts). Ambulatory Aid- None/Bed Rest/Nurse Assist (0 pts). Gait- Normal/Bed Rest/Wheelchair (0 pts) Mental Status- Oriented to own ability (0 pts). Total Modi Fall Scale indicates No Risk (0-24 pts). Assessment: 10:55 General: Appears in no apparent distress. Behavior is calm, cooperative. Pain: Pain hb currently is 9 out of 10 on a pain scale. Neuro: Level of Consciousness is awake, alert, obeys commands, Oriented to person, place, time, situation. Cardiovascular: Patient's skin is warm and dry. Respiratory: Respiratory effort is even, unlabored, Respiratory pattern is regular, symmetrical. GI: No signs and/or symptoms were reported involving the gastrointestinal system. : No signs and/or symptoms were reported regarding the genitourinary system. EENT: No signs and/or symptoms were reported regarding the EENT system. Derm: Skin is pink, warm \T\ dry. Musculoskeletal: Reports severe left ankle pain that radiates to lower leg. 11:45 Reassessment: Patient appears in no apparent distress at this time. Patient and/or hb family updated on plan of care and expected duration. Pain level reassessed. Patient is alert, oriented x 3, equal unlabored respirations, skin warm/dry/pink. 12:30 Reassessment: Patient appears in no apparent distress at this time. Patient and/or hb family updated on plan of care and expected duration. Pain level reassessed. Patient is alert, oriented x 3, equal unlabored respirations, skin warm/dry/pink. Vital Signs: 09:50 BP 125 / 61; Pulse 59; Resp 20; Temp 98.5(TE); Pulse Ox 98% on R/A; Weight 99.79 kg kg (R); Height 5 ft. 2 in. (157.48 cm) (R); Pain 10/10; 09:50 Body Mass Index 40.24 (99.79 kg, 157.48 cm) kg ED Course: 09:31 Patient arrived in ED. am2 09:31 Melina French MD is Private Physician. am2 09:53 Triage completed. kg 09:56 Arm band placed on right wrist. kg 10:00 Patient has correct armband on for positive identification. kg 10:21 Extremity Venous Uni Ltd US In Process Unspecified. EDMS 10:44 Eugenio Marsh PA is PHCP. cp 10:44 Nixon Fuentes MD is Attending Physician. cp 11:22 XRAY Ankle LEFT 3 view In Process Unspecified. EDMS 11:30 Shruti Tripp RN is Primary Nurse. hb 12:30 No provider procedures requiring assistance completed. Patient did not have IV access hb during this emergency room visit. Administered Medications: 11:05 Drug: HYDROcodone-acetaminophen 5 mg-325 mg 1 tabs Route: Feeding Tube; hb Outcome: 12:13 Discharge ordered by MD. cp 12:30 Discharged to home via wheelchair, with family. hb 12:30 Condition: stable 12:30 Discharge instructions given to patient, Instructed on discharge instructions, follow up and referral plans. medication usage, Demonstrated understanding of instructions, follow-up care, medications, Prescriptions given X 2. 12:53 Patient left the ED. hb Signatures: Dispatcher [employer] EDMS Ariane Rolle RN RN aa5 Eugenio Marsh PA PA cp Shruti Tripp RN RN hb Carlotta Leblanc am2 Kusum Florian RN RN kg Corrections: (The following items were deleted from the chart) 11:25 10:43 Ariane Rolle RN is Primary Nurse. aa5 aa5
--- NOTE | 2020-11-30 12:14 | EDPHYS ---
Physician Documentation [facility] Name: Lynnette Marinelli Age: 69 yrs Sex: Female : 1950 Arrival Date: 11/30/2020 Time: 09:31 Bed 3 Private MD: Melina French F ED Physician Nixon Fuentes HPI: 11/30 10:50 This 69 yrs old Female presents to ER via Wheelchair with complaints of Leg cp Swelling, Leg Pain, Can't walk. 10:50 The patient presents with pain, that is acute, swelling, tenderness. The complaints cp affect the left lateral ankle. 10:50 Context: resulted from an unknown cause, the patient can partially bear weight, the cp patient is able to ambulate, with moderate difficulty, Problem is a result from a previous injury: No. 10:50 Onset: The symptoms/episode began/occurred yesterday. cp 10:50 Modifying factors: the symptoms are aggravated by weight bearing. Associated signs and cp symptoms: Pertinent negatives calf tenderness, fever, numbness, injury. Treatment prior to arrival includes: no previous treatment. Historical: - Allergies: 09:53 NKA; kg - Home Meds: 09:56 amlodipine 10 mg tab 1 tab once daily [Active]; folic acid 1 mg Oral tab 1 tab once kg daily [Active]; hydrochlorothiazide 12.5 mg Oral tab 1 tab once daily [Active]; Lexapro 20 mg Oral tab 1 tab once daily [Active]; lisinopril 40 mg Oral tab 1 tab once daily [Active]; Synthroid 25 mcg Oral tab 1 tab once daily [Active]; - PMHx: 09:53 liver cancer; Hypothyroidism; Hypertension; Depression; Anal Cancer; kg - PSHx: 09:53 Port implantation and removal; Liver resection; Gastric bypass; skin removal surgery; kg skin cancer removed; hystrectomy; Cholecystectomy; - Immunization history:: Adult Immunizations not up to date, Client reports receiving the 2nd dose of the Covid vaccine. - Social history:: Smoking status: Patient/guardian denies using tobacco, but has a distant history of tobacco abuse, Patient uses alcohol, weekly. ROS: 11:00 MS/extremity: Positive for pain, swelling, tenderness, of the left lateral ankle, cp Negative for injury or acute deformity, decreased range of motion. 11:00 Constitutional: Negative for body aches, chills, fever. cp 11:00 Neck: Negative for pain with movement, pain at rest, stiffness. 11:00 Cardiovascular: Negative for chest pain. 11:00 Respiratory: Negative for cough, shortness of breath, wheezing. 11:00 Abdomen/GI: Negative for abdominal pain. 11:00 Back: Negative for pain at rest, pain with movement. 11:00 Skin: Negative for cellulitis, rash. 11:00 Neuro: Negative for numbness, tingling, weakness. 11:00 All other systems are negative. Exam: 11:05 Constitutional: The patient appears in no acute distress, alert, awake, non-toxic, well cp developed, well nourished. 11:05 Head/Face: Normocephalic, atraumatic. cp 11:05 Chest/axilla: Inspection: normal. 11:05 Cardiovascular: Rate: bradycardic, Rhythm: regular, Pulses: Pulses are 2+ in left dorsalis pedis artery. 11:05 Respiratory: the patient does not display signs of respiratory distress, Respirations: normal, no use of accessory muscles, no retractions. 11:05 Skin: cellulitis, is not appreciated, no rash present. 11:05 Musculoskeletal/extremity: Extremities: grossly normal except: noted in the left cp lateral ankle: pain, swelling, tenderness, There is no evidence of decreased ROM, deformity, erythema, Sensation intact. Achilles tendon palpated and intact. Skin warm, dry, intact, no anterior and/or medial joint line tenderness noted. Vital Signs: 09:50 BP 125 / 61; Pulse 59; Resp 20; Temp 98.5(TE); Pulse Ox 98% on R/A; Weight 99.79 kg kg (R); Height 5 ft. 2 in. (157.48 cm) (R); Pain 10/10; 09:50 Body Mass Index 40.24 (99.79 kg, 157.48 cm) kg MDM: 10:45 Patient medically screened. cp 11:00 Differential diagnosis: dislocation, closed fracture, tendonitis, cellulitis, DVT, gout.cp 12:13 Data reviewed: vital signs, nurses notes, radiologic studies, plain films, ultrasound. cp 12:13 Test interpretation: by ED physician or midlevel provider: plain radiologic studies. cp Counseling: I had a detailed discussion with the patient and/or guardian regarding: the historical points, exam findings, and any diagnostic results supporting the discharge/admit diagnosis, radiology results, the need for outpatient follow up, an cadd operator, to return to the emergency department if symptoms worsen or persist or if there are any questions or concerns that arise at home. Response to treatment: the patient's symptoms have mildly improved after treatment, and as a result, I will discharge patient. 11/30 09:58 Order name: Extremity Venous Uni Ltd US; Complete Time: 10:45 rn 11/30 10:57 Order name: XRAY Ankle LEFT 3 view; Complete Time: 12:20 cp 11/30 12:20 Interpretation: Report reviewed. cp 11/30 11:28 Order name: Ankle Splint: Aircast; Complete Time: 12:52 cp Administered Medications: 11:05 Drug: HYDROcodone-acetaminophen 5 mg-325 mg 1 tabs Route: Feeding Tube; hb Disposition: 12:20 Chart complete. cp 13:25 Co-signature as Attending Physician, Nixon Fuentes MD. rn Disposition Summary: 11/30/20 12:13 Discharge Ordered Location: Home cp Problem: new cp Symptoms: have improved cp Condition: Stable cp Diagnosis - Pain in left ankle and joints of left foot cp Followup: cp - With: Private Physician - When: 2 - 3 days - Reason: Worsening of condition Discharge Instructions: - Discharge Summary Sheet cp - Elastic Bandage and RICE Therapy cp - Ankle Pain cp Forms: - Medication Reconciliation Form cp - Thank You Letter cp - Antibiotic Education cp - Prescription Opioid Use cp Prescriptions: - Diclofenac Sodium 75 mg Oral tablet,delayed release (DR/EC) - take 1 tablet by ORAL route 2 times per day; 20 tablet; Refills: 0, Product cp Selection Permitted - Tramadol 50 mg Oral Tablet - take 1 tablet by ORAL route every 8 hours as needed; 12 tablet; Refills: 0, cp Product Selection Permitted Signatures: Dispatcher [employer] EDNixon Dee MD MD rn Page, Corey, PA PA cp Shruti Tripp RN RN hb Graham, Kristen, RN RN kg Corrections: (The following items were deleted from the chart) 12/01 09:02 11/30 11:05 Musculoskeletal/extremity: Extremities: grossly normal except: noted in the cp left lateral ankle: pain, swelling, tenderness, There is no evidence of decreased ROM, deformity, erythema, Sensation intact. Achilles tendon palpated and intact. cp
--- NOTE | 2020-11-30 12:19 | RAD REPORT ---
EXAM DESCRIPTION: RAD - Ankle Left 3 View - 11/30/2020 11:22 am CLINICAL HISTORY: Pain;Swelling COMPARISON: No comparisons FINDINGS: Large posterior and moderate plantar calcaneal spur noted. Moderate hindfoot valgus deform ity is present. No acute fracture seen. Mild soft tissue swelling.
[2020-12-01 09:46] VITALS: BP 125/61; TEMP 98.5; O2SAT 98
== END 2020-11-30 12:53 | disposition home or self-care (01) ==
LOC: ER 09:22
DX: M25.572 Pain in left ankle and joints of left foot (principal); E03.9 Hypothyroidism, unspecified; F32.9 Major depressive disorder, single episode, unspecified; I10 Essential (primary) hypertension
CPT/HCPCS: 93971; 99283

== ENCOUNTER 2021-03-27 07:26 | Day surgery (SDC) | payer OTHER ==
[2021-03-23 12:14] LABS: Absolute Lymphocytes (CBC) 1.1 K/uL (0.7-4.9); Basophils % 0.9 % (0-1.3); Hematocrit 30.9 % (36.0-45.0); Lymphocytes % 19.8 % (15.3-44.8); MPV 9.6 fL (7.6-11.3); RBC Red Blood Cell Count 4.03 M/uL (3.86-4.86)
[2021-03-23 12:26] LABS: Potassium 4.5 mmol/L (3.5-5.1)
--- NOTE | 2021-03-23 12:35 | RAD REPORT ---
EXAM DESCRIPTION: RAD - Chest Pa And Lat (2 Views) - 03/23/2021 12:10 pm CLINICAL HISTORY: Pre Op Chest pain. COMPARISON: Chest Pa And Lat (2 Views) dated 02/19/2020; CHEST SINGLE VIEW dated 06/01/2012; CHEST SI NGLE VIEW dated 01/08/2008; CHEST SINGLE VIEW dated 10/01/2006 FINDINGS: The lungs are clear. The heart is upper limit of normal in size. No displaced fractures. IMPRESSION: No acute or concerning finding suspected.
--- NOTE | 2021-03-24 13:20 | EKG ---
Test Date: 2021-03-23 Test Time: 11:57:14 Bottle Packer: NAT MEASUREMENT RESULTS: Intervals: Rate: 57 CA: 170 QRSD: 94 QT: 426 QTc: 414 [place]: P: 68 CA: 170 QRS: -24 T: 46 INTERPRETIVE STATEMENTS: Sinus bradycardia with sinus arrhythmia Otherwise normal ECG Compared to ECG 02/19/2020 09:03:06 No significant changes Electronically Signed On 03-24-21 13:16:39 DENTAL TECHNICIAN APPRENTICE by Jerrell Serrato
[2021-03-27] MEDS ORDERED: CEFAZOLIN/NS 1gm 1 GM/50 ML BAG ONE (07:42)
[2021-03-27] MEDS ORDERED: Ringers Lactate 1,000 ML IV ONE (07:42)
[2021-03-27] MEDS ORDERED: BUPIVACAINE 0.5% PF 10 ML VIAL ONE (07:58)
[2021-03-27] MEDS ORDERED: FENTANYL CITR 100 MCG/2 ML ONE (08:12)
[2021-03-27] MEDS ORDERED: LIDOCAINE 1% MPF 5 ML VIAL ONE (08:12)
[2021-03-27] MEDS ORDERED: propofoL 200 MG/20 ML VIAL IV ONE ×2 (08:12→08:32)
[2021-03-27] MEDS ORDERED: ONDANSETRON 4 MG/2 ML VIAL ONE (08:47)
[2021-03-27] MEDS ORDERED: HYDROCODONE/APAP 7.5/325 MG TAB ONE (10:38)
[2021-03-27 11:34] VITALS: BP 142/71; TEMP 96.6; O2SAT 96
--- NOTE | 2021-03-27 20:00 | OP ---
Date of Procedure: 03/27/2021 Surgeon: Vini Berman MD List Of First Job Ideas: None. Preoperative Diagnosis: Left forearm mass x2. Postoperative Diagnosis: Left forearm mass x2. Procedure Performed: Wide excision left forearm mass x2, 8 x 3 cm with layered closure. Estimated Blood Loss: Minimal. Specimen: Left forearm mass. 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 Anesthesia: General. Complications: None. Disposition: The patient tolerated the procedure in stable condition and taken to recovery in good g eneral condition. Procedure In Detail: The patient was brought to the OR and placed in supine position and general ane sthesia began. The patient was prepped and draped in the usual sterile fashion. Marcaine 0.5% was i nfiltrated locally for postop pain control and #15 blade was used to make 8 x 3 cm incision to excise both of these 2 raised areas that was approximately 1 and 1.5 cm, but there were close enough togeth er that 1 incision would encompass both lesions. Subsequently, both masses excised down through the deep subcutaneous tissue and sent to Pathology. Frozen section revealed squamous cell carcinoma in b oth areas and the margins were free. Wound irrigated. Bleeding controlled with cautery. Flaps crea lebron and 4-0 chromic used to approximate the subcutaneous tissue and 5-0 nylon was used to close skin. Sterile dressing was applied. The patient was awakened and taken to Recovery in good general condi tion. Discharge Note: The patient will go to Day Surgery and home when stable. Disposition: Home. Condition: Stable. Discharge Instructions: Resume home medications and diet. Activity as tolerated. No heavy lifting. Keep dressing clean, dry. May shower in 2 days, however, we will change the dressing in the office . Follow up in my office 10 days. Call for appointment. Tylenol No.3 one tablet p.o. q.4 p.r.n. pa in. /MODL Voice ID: [id number] Report ID: [id number]
== END 2021-03-27 11:40 | disposition home or self-care (01) ==
LOC: OR 07:26
PROVIDERS: ATTEND Surgery
PROC: 0JBH0ZZ Excision of Left Lower Arm Subcutaneous Tissue and Fascia, Open Approach (ICD-10-PCS; principal; 2021-03-27 08:30)
DX: D04.62 Carcinoma in situ of skin of left upper limb, including shoulder (principal); Z20.822 Contact with and (suspected) exposure to COVID-19
CPT/HCPCS: 93005; 85025; 80048; 36415; 88331; 88332; 88305; 71046; 11603; U0003; J2704 ×2; J3010; J0690; J7120; J2405

== ENCOUNTER 2023-06-28 10:00 | Day surgery (SDC) | payer OTHER ==
[2023-06-26 12:01] LABS: Protime INR 1.47
--- NOTE | 2023-06-27 16:08 | EKG ---
Test Date: 2023-06-26 Test Time: 12:40:28 Dry Paste Supervisor: NAT MEASUREMENT RESULTS: Intervals: Rate: 68 [place]: QRSD: 90 QT: 406 QTc: 431 [place]: P: NV: QRS: -18 T: 6 INTERPRETIVE STATEMENTS: Atrial fibrillation Minimal voltage criteria for LVH, may be normal variant Abnormal ECG Compared to ECG 03/23/2021 11:57:14 Left ventricular hypertrophy now present Sinus bradycardia no longer present Sinus arrhythmia no longer present Electronically Signed On 06-27-23 16:04:59 WELDER [employer] FAB by Minor Flores
[2023-06-28] MEDS ORDERED: LIDOCAINE VISCOUS 2% 10ML ORAL SOLN MM ONE (10:01)
[2023-06-28] MEDS ORDERED: CHERRY MM ONE (10:01)
[2023-06-28] MEDS ORDERED: NA CHLORIDE 0.9% 500 ML ONE (10:09)
[2023-06-28] MEDS ORDERED: MIDAZOLAM HCL 2 MG/2 ML INJ ONE (10:53)
[2023-06-28] MEDS ORDERED: FENTANYL CITR 100 MCG/2 ML ONE (10:53)
[2023-06-28] MEDS ORDERED: MIDAZOLAM HCL 5 ML ONE (10:54)
[2023-06-28] MEDS ORDERED: HYDRALAZINE HCL 20 MG/ML VIAL ONE (10:54)
[2023-06-28] MEDS ORDERED: FLUMAZENIL 0.1 MG/ML (5 mL VIAL) IV ONE (10:54)
[2023-06-28] MEDS ORDERED: NALOXONE 0.4 MG/ML VIAL ONE (10:54)
[2023-06-28] MEDS ORDERED: ATROPINE SULF 1 MG/10 ML SYR IV ONE (10:54)
[2023-06-28] MEDS ORDERED: METOPROLOL TARTRATE 5 MG/5 ML INJ IV ONE (10:54)
--- NOTE | 2023-06-28 12:43 | TEE ---
TRANSESOPHAGEAL ECHOCARDIOGRAM REPORT CARDIOLOGY DEPARTMENT DATE OF STUDY: 06/28/2023 HEIGHT: 5'1" WEIGHT: 200 lbs DIAGNOSIS: ATRIAL FIBRILLATION/ CARDIOVERSION ALTERATIONS TAILOR COMMENTS: CADE CARDIAC HISTORY: CATHERIZATION: SURGERY: PROSTHETIC VALVE: PACEMAKER: 2 DIMENSIONAL ASSESSMENT: RIGHT ATRIUM: NORMAL LEFT ATRIUM: ENLARGED RIGHT VENTRICLE: NORMAL LEFT VENTRICLE: NORMAL TRICUSPID VALVE: MODERATE TRICUSPID REGURGITATION MITRAL VALVE: MILD MITRAL REGURGITATION PULMONIC VALVE: NORMAL AORTIC VALVE: NORMAL PERICARDIAL EFFUSION: NONE AORTIC ROOT: NORMAL EJECTION FRACTION: LEFT VENTRICULAR WALL MOTION: NORMAL DOPPLER/COLOR FLOW: NOT DONE COMMENTS: 1. NORMAL LEFT VENTRICULAR FUNCTION 2. SEVERELY ENLARGED LEFT ATRIUM 3. NORMAL LEFT ATRIAL APPENDAGE, NO CLOT, SLOW VELOCITY, STATUS POST DIRECT CURRENT CARDIOVERSION TECHNOLOGIST: TATYANA BECK
[2023-06-28 13:29] VITALS: TEMP 97
[2023-06-28 14:17] VITALS: BP 109/60; O2SAT 97
--- NOTE | 2023-07-01 14:39 | EKG ---
Test Date: 2023-06-28 Test Time: 12:15:03 Machine Package Sealer: SORIN MEASUREMENT RESULTS: Intervals: Rate: 54 MI: 196 QRSD: 96 QT: 450 QTc: 426 [place]: P: 59 MI: 196 QRS: -28 T: 33 INTERPRETIVE STATEMENTS: Sinus bradycardia Otherwise normal ECG Compared to ECG 06/26/2023 12:40:28 Atrial fibrillation no longer present Left ventricular hypertrophy no longer present Electronically Signed On 07-01-23 14:30:06 PROFESSOR OF THEOLOGY by Minor Flores
== END 2023-06-28 14:15 | disposition home or self-care (01) ==
LOC: CCL 10:00
PROVIDERS: ATTEND Internal Medicine Interventional Cardiology
DX: I48.91 Unspecified atrial fibrillation (principal)
CPT/HCPCS: 93005 ×2; 93312; 36415; 85610; 85730; 92960; J2250; J3010; J7040; J0360; J0461; J2310